=== PATIENT | male | born 1950 | race Caucasian/White ===

== ENCOUNTER → 2017-08-17 | Outpatient (CLI) | payer OTHER ==
[~2017-08-17] MED LIST: ASPI325T39 PO; NIFE30TA83 PO
[2017-08-17 13:38] LABS: BLOOD UREA NITROGEN 19 mg/dl (7-18); BUN/CREATININE RATIO 17.6 (10-20); CALCIUM 9.2 mg/dl (8.5-10.1); CARBON DIOXIDE 23 mmol/L (21-32); CHLORIDE 107 mmol/L (98-107); GLUCOSE 91 mg/dl (70-99); POTASSIUM 3.8 mmol/L (3.5-5.1); SODIUM 139 mmol/L (136-145)
[2017-08-17 13:52] LABS: CHOLESTEROL 171 mg/dl (0-200); CHOLESTEROL/HDL RATIO 3.5; HDL CHOLESTEROL 49 mg/dl; TRIGLYCERIDES 169 mg/dl (0-150); VERY LOW DENSITY LIPOPROT CALC 34 mg/dl
== END | disposition home or self-care (01) ==
LOC: C.LABSPEC 12:31
PROVIDERS: ATTEND Internal Medicine
DX: Z00.00 Encounter for general adult medical examination without abnormal findings (principal); I10 Essential (primary) hypertension; E78.5 Hyperlipidemia, unspecified

== ENCOUNTER → 2017-11-01 | Day surgery (SDC) | payer OTHER ==
[2017-09-28 15:35] LABS: BASO % 0.1 %; BASO ABS # 0.01 K/uL (0-0.2); COMPLETE YES; EOS % 1.5 %; HEMATOCRIT 48.6 % (42-52); IG% 0.4 %; LYMPH % 28.9 %; LYMPH ABS # 2.17 K/uL (1.2-3.4); MEAN CELL VOLUME 91.9 fL (80-100); MEAN CORPUSCULAR HEMOGLOBIN 32.5 pg (25-34); MEAN CORPUSCULAR HGB CONC 35.4 g/dl (32-36); NEUT % 61.1 %; PLATELET COUNT 230 K/uL (130-400); RED BLOOD COUNT 5.29 M/uL (4.7-6.1)
--- NOTE | 2017-09-28 15:40 | DIAGNOSTIC IMAGING REPORT ---
CHEST 2 VIEWS ROUTINE HISTORY: Z01.818 Pre-operative exam, WENT TO LAB SEND TO [facility] COMPARISON: Chest 02/06/2016. FINDINGS: The heart remains borderline enlarged. Tortuous thoracic aorta. The lungs are clear. No pleural effusions. No pneumothorax. IMPRESSION: No acute process. Electronically signed by: Steve Alberts M.D. 09/28/2017 3:38 PM Dictated Date/Time: 09/28/2017 3:37 PM
[2017-09-28 15:46] LABS: INR 0.9 (0.9-1.1); PARTIAL THROMBOPLASTIN RATIO 1.1; PROTHROMBIN TIME (PATIENT) 9.6 SECONDS (9.0-12.0)
[2017-09-28 16:08] LABS: POTASSIUM 4.3 mmol/L (3.5-5.1)
[2017-09-30 13:05] VITALS: Ht 177.8 cm; Wt 95.5 kg
[~2017-11-01] VITALS: Ht 177.8 cm; Wt 95.5 kg
[~2017-11-01] MED LIST changes: -ASPI325T39 PO; +ASPI81TA28 PO; +ATROPINE SULFATE 0.1 MG/ML 5ML SYR IV PRN; +DEXAMETHASONE SOD INJ 4 MG/ML VIAL ONE; +EpHEDrine SULFATE 50MG/5ML SYR ONE; +EpINEphrine INJ 1MG/ML AMP 1 MG/ML AMP ONE; +FENTANYL CITRATE INJ 50 MCG/1 ML 2 ML VIAL IV PRN; +FENTANYL CITRATE INJ 50 MCG/1 ML 2 ML VIAL ONE; +GLYCOPYRROLATE INJ 0.2 MG/ML VIAL ONE; +HYDROCODONE/APAP 2.5MG/108MG ELIX 5 ML UDP PO PRN; +LACTATED RINGER'S 1000ML 1,000 ML IV SCH; +LIDOCAINE 4% MPF SOAK 5 ML = 1 DOSE TOP ONE; +LIDOCAINE HCL 2% 2 ML VIAL (20MG/ML) ONE; +MIDAZOLAM HCL 1 MG/ML 2ML VIAL ONE; +MULT-506 PO; +OMEG10007 PO; +ONDANSETRON INJ 2 MG/ML 2 ML VIAL IV PRN; +ONDANSETRON INJ 2 MG/ML 2 ML VIAL ONE; +PRLSR20 PO; +PROPOFOL IV EMULSION 10 MG/ML 20 ML VIAL IV ONE
--- NOTE | 2017-11-01 13:40 | History and Physical: Surg Cnt ---
History & Physical Date Nov 01, 2017. Chief Complaint RIGHT VALLECULAR CYST, COUGH, THROAT "ANNOYANCE" History of Present Illness The patient is a 67 year old male with complaints of CHRONIC COUGH, THROAT CLEARING AND RIGHT SIDED GLOBUS SENSATION WITH LPR RX'D WITH MEDS BUT STILL SYMPTOMATIC. PATIENT NOTED TO HAVE RIGHT VALLECULAR CYST. Past Medical/Surgical History PMH: ABOVE, ARTHRITIS, CHOLELITHIASIS, BASAL CELL CA, HTN, LPR, MELENDEZ'S DISEASE PSH: S/P ANKLE SURGERY, S/P APPY, S/P AMADOR, S/P COLOSTOMY, S/P TONSILLECTOMY Additional History Hepatic Disease: No Endocrine Disorder: No Kidney Disease: No Hypertension: No Heart Disease: No Bleeding Tendencies: No Infectious Diseases: No Allergies Coded Allergies: Morphine (Verified Allergy, Unknown, RASH, 11/01/17) Oxycodone (Verified Allergy, Unknown, RASH, 11/01/17) Penicillins (Verified Allergy, Unknown, RASH, 11/01/17) Home Medications Scheduled Aspirin (Aspirin Ec), 81 MG PO DAILY Fish Oil ([place]-3), 1 CAP PO DAILY Multivitamin (Multivitamin), 1 TAB PO DAILY Nifedipine Ext Rel (Procardia Xl Ext Rel), 30 MG PO QPM Physical Examination Skin: warm/dry, no rash Eyes: normal inspection, EOMI, sclerae normal ENT: + pertinent finding (MODERATE SIZED RIGHT VALLECULAR CYST) Neck: supple, no adenopathy, trachea midline Respiratory/Chest: lungs clear, normal breath sounds, no respiratory distress Cardiovascular: regular rate, rhythm, no edema, no murmur Neurologic/Psych: no motor/sensory deficits, alert, normal reflexes, oriented x 3 Diagnosis RIGHT VALLECULAR CYST Plan of Treatment DML WITH REMOVAL OF RIGHT VALLECULAR CYST
--- NOTE | 2017-11-01 14:09 | [facility] Operative Report ---
Operative Report Operative Date Nov 01, 2017. Pre-Operative Diagnosis RIGHT VALLECULAR CYST Post-Operative Diagnosis TWO RIGHT VALLECULAR CYSTS Procedure(s) Performed DIRECT MICROLARYNGOSCOPY WITH BIOPSIES OF TWO RIGHT VALLECULAR CYSTS Surgeon KATHY Transport [employer]crew[employer] Surgeon(s) NONE Estimated Blood Loss 5ML Findings 1 LARGE AND 1 SMALLER RIGHT VALLECULAR CYSTS Specimens RIGHT VALLECULAR CYST 1 AND 2 FOR PERMANENT PATH I attest to the content of the Intraoperative Record and any orders documented therein. Any exceptions are noted below.
--- NOTE | 2017-11-01 14:12 | Discharge Instructions ---
Discharge Instructions Date of Service Nov 01, 2017. Admission Reason for Admission: Right Vallecular Cyst Discharge Discharge Diagnosis / Problem: 2 RIGHT VALLECULAR CYSTS Discharge Goals Goal(s): Therapeutic intervention Activity Recommendations Activity Limitations: as noted below NO DRIVING WHILE ON [place]CO . Current Hospital Diet Patient's current hospital diet: Regular Diet Discharge Diet Recommended Diet: Regular Diet Procedures Procedures Performed: DIRECT MICROLARYNGOSCOPY WITH BIOPSIES OF TWO RIGHT VALLECULAR CYSTS Pending Studies Studies pending at discharge: no Laboratory Results Lipid Panel Test 08/17/17 10:00 Range/Units Triglycerides Level 169 H 0-150 mg/dl Cholesterol Level 171 0-200 mg/dl HDL Cholesterol 49 mg/dl LDL Cholesterol Direct 112 mg/dl Cholesterol/HDL Ratio 3.5 LDL Cholesterol, Calculated mg/dl Medical Emergencies . Who to Call and When: Medical Emergencies: If at any time you feel your situation is an emergency, please call 911 immediately. . Non-Emergent Contact Non-Emergency issues call your: Surgeon . . "Provider Documentation" section prepared by Archie Arias. . VTE Core Measure Inpt VTE Proph given/why not?: SCD's
[2017-11-01 14:42] VITALS: TEMP 36.1
--- NOTE | 2017-11-01 14:56 | Anesthesia Progress Nt - [facility] ---
Anesthesia Post Op Note Date & Time Nov 01, 2017 at 14:56 Vital Signs Pain Intensity: 0 Vital Signs Past 12 Hours Date Time Temp Pulse Resp B/P (MAP) Pulse Ox O2 Delivery O2 Flow Rate FiO2 11/01/17 14:42 36.1 68 16 116/81 (93) 92 Room Air 11/01/17 14:37 72 14 94 11/01/17 14:37 72 14 11/01/17 14:37 36.6 70 16 133/80 98 Room Air 11/01/17 14:36 123/80 11/01/17 14:32 81 18 94 11/01/17 14:32 81 18 11/01/17 14:31 111/75 11/01/17 14:27 81 15 99 11/01/17 14:27 81 15 11/01/17 14:26 105/80 11/01/17 14:22 80 38 98 11/01/17 14:22 80 38 11/01/17 14:21 120/78 11/01/17 14:18 133/80 11/01/17 14:17 79 19 97 11/01/17 14:17 79 19 11/01/17 14:17 36 97 16 133/80 98 Room Air 11/01/17 11:01 36.5 50 16 147/91 (109) 97 Room Air Notes Mental Status: alert / awake / arousable, participated in evaluation Pt Amnestic to Procedure: Yes Nausea / Vomiting: adequately controlled Pain: adequately controlled Airway Patency, RR, SpO2: stable & adequate BP & HR: stable & adequate Hydration State: stable & adequate Anesthetic Complications: no major complications apparent
[2017-11-01 14:57] VITALS: BP 122/81; PULSE 63; O2SAT 95
--- NOTE | 2017-11-01 15:56 | OPERATIVE REPORT ---
DATE OF OPERATION: 11/01/2017 PREOPERATIVE DIAGNOSIS: Right vallecular cyst. POSTOPERATIVE DIAGNOSIS: Two right vallecular cysts. PROCEDURE: Direct microlaryngoscopy with biopsy of 2 right vallecular cysts. SURGEON: Dr. Archie Arias. ANESTHESIA: General endotracheal. ESTIMATED BLOOD LOSS: 5 mL. FINDINGS: One large and one smaller right vallecular cysts with purulence within each of the cysts. SPECIMENS: Right vallecular cyst #1 and right vallecular cyst #2 for permanent pathologic assessment. COMPLICATIONS: None. INDICATIONS FOR THE PROCEDURE: The patient is a very pleasant 67-year-old male with a history of laryngopharyngeal reflux with frequent throat clearing, coughing, and a right-sided Globus sensation, for which he was also found to have a right vallecular cyst in the office. Despite antireflux medications and lifestyle and dietary changes to control the reflux, he continued to have symptomatology, but was improved by approximately "30%." In an interval laryngoscopy examination several months apart, his right vallecular cyst had increased in size and because he had right-sided Globus sensation, it was recommended that he undergo direct microlaryngoscopy with biopsy in case his symptoms were primarily due to the vallecular cysts rather than the laryngopharyngeal reflux. He presents for the above-mentioned procedure on an outpatient elective basis. DESCRIPTION OF PROCEDURE: After informed consent had been obtained from the patient, the patient was wheeled to the operating room and placed on the operating room table in the supine position. Monitors were placed. After induction of general endotracheal anesthesia, the patient was prepped in the usual fashion for direct microlaryngoscopy. The patient was placed in the sniffing position and a tooth guard was placed over the maxillary dentition. The operating microscope was used to inspect the oral cavity, oropharynx, hypopharynx, and larynx. The intraoperative findings were of 2 vallecular cysts on the right hand side with the larger one being more inferior and adjacent to the epiglottis and the smaller one being more superior in adjacent to the tongue base. Photodocumentation with a 0 degree bare telescope was then undertaken. Using the bare telescope, cup forceps were used to biopsy and subsequently marsupialize both the inferior and superior right vallecular cyst. Purulent material was noted to emanate from both vallecular cysts. Specimens were sent off for permanent pathological assessment. Topical 1:1000 epinephrine pledgets were placed over the biopsy sites and for added hemostatic effect. After several minutes, the pledgets were removed and hemostasis was confirmed. The oral cavity and oropharynx were suctioned. The operating microscope was carefully withdrawn as was the maxillary tooth guard. This marked the end of the case. The patient tolerated the procedure well. There were no apparent complications. All the instrumentation was removed from the patient. The patient was extubated and transferred to recovery room in stable condition. I attest to the content of the Intraoperative Record and any orders documented therein. Any exception s are noted below.
== END | disposition home or self-care (01) ==
LOC: X.SURG 10:49
DX: J38.7 Other diseases of larynx (principal); I10 Essential (primary) hypertension; Z93.3 Colostomy status; M19.90 Unspecified osteoarthritis, unspecified site; Z88.5 Allergy status to narcotic agent; Z88.0 Allergy status to penicillin; Z90.89 Acquired absence of other organs; Z90.49 Acquired absence of other specified parts of digestive tract; Z79.82 Long term (current) use of aspirin

== ENCOUNTER → 2017-12-13 | Outpatient (CLI) | payer OTHER ==
[~2017-12-13] MED LIST changes: -ATROPINE SULFATE 0.1 MG/ML 5ML SYR IV PRN; -DEXAMETHASONE SOD INJ 4 MG/ML VIAL ONE; -EpHEDrine SULFATE 50MG/5ML SYR ONE; -EpINEphrine INJ 1MG/ML AMP 1 MG/ML AMP ONE; -FENTANYL CITRATE INJ 50 MCG/1 ML 2 ML VIAL IV PRN; -FENTANYL CITRATE INJ 50 MCG/1 ML 2 ML VIAL ONE; -GLYCOPYRROLATE INJ 0.2 MG/ML VIAL ONE; -HYDROCODONE/APAP 2.5MG/108MG ELIX 5 ML UDP PO PRN; -LACTATED RINGER'S 1000ML 1,000 ML IV SCH; -LIDOCAINE 4% MPF SOAK 5 ML = 1 DOSE TOP ONE; -LIDOCAINE HCL 2% 2 ML VIAL (20MG/ML) ONE; -MIDAZOLAM HCL 1 MG/ML 2ML VIAL ONE; -ONDANSETRON INJ 2 MG/ML 2 ML VIAL IV PRN; -ONDANSETRON INJ 2 MG/ML 2 ML VIAL ONE; -PRLSR20 PO; -PROPOFOL IV EMULSION 10 MG/ML 20 ML VIAL IV ONE
--- NOTE | 2017-12-13 09:24 | DIAGNOSTIC IMAGING REPORT ---
(BARIUM SWALLOW) ESOPHAGUS CLINICAL HISTORY: 67 years-old Male presenting with K21.9 Laryngopharyngeal reflux PATIENT WITH HEARTBURN, DYSPHAGIA,. TECHNIQUE: A standard air contrast barium esophagram is performed. Multiple spot images of the esophagus are acquired both upright and prone. COMPARISON: None. FINDINGS: The patient was able to ingest barium without difficulty. Normal mucosal pattern. No evidence of intrinsic or extrinsic mass lesion. No aspiration observed. Few tertiary contractions evident. Trace hiatal hernia may be present. The gastroesophageal junction distended normally. No gastroesophageal reflux could be elicited despite provocative maneuvers. Fluoroscopy dosage (mGy): Not available. Fluoroscopy time: 1.9 minutes. Number of fluoroscopic spot images: 20. IMPRESSION: 1. Tertiary contractions in the esophagus could suggest dysmotility, likely presbyesophagus. 2. Trace hiatal hernia. Electronically signed by: Tru Gilbert M.D. 12/13/2017 9:23 AM Dictated Date/Time: 12/13/2017 9:21 AM
== END | disposition home or self-care (01) ==
LOC: C.RAD 08:51
DX: K21.9 Gastro-esophageal reflux disease without esophagitis (principal)

== ENCOUNTER → 2018-02-15 | Outpatient (CLI) | payer OTHER ==
[2018-02-21 17:07] LABS: FECAL OCCULT BLOOD #1 NEGATIVE (NEGATIVE); FECAL OCCULT BLOOD #2 NEGATIVE (NEGATIVE); FECAL OCCULT BLOOD #3 NEGATIVE (NEGATIVE)
== END | disposition home or self-care (01) ==
LOC: C.LABSPEC 16:36
PROVIDERS: ATTEND Internal Medicine
DX: Z12.11 Encounter for screening for malignant neoplasm of colon (principal)

== ENCOUNTER → 2018-03-08 | Outpatient (CLI) | payer OTHER ==
--- NOTE | 2018-03-11 07:58 | PULMONARY FUNCTION TEST ---
CLINICAL DATA: [age]old male with a height of 70 inches and a weight of [address] Bunn for a persistent cough. Spirometry pre- and post-bronchodilator, lung volumes, and DLCO were performed. FINDINGS: Pre-bronchodilator spirometry demonstrates very mild small airway obstruction. FVC was 100% of predicted. FEV1 was 96% of predicted. [id number] was 75% of predicted. There was improvement after inhaled bronchodilator. FVC improved 2% to 102% of predicted. FEV1 improved 7% to 103% of predicted. [id number] improved 44% to 108% of predicted. Lung volumes showed a slight reduction in expiratory reserve volume due to the patient's weight. Diffusion capacity was normal. IMPRESSION: Very mild obstructive small airways disease with improvement after inhaled bronchodilator consistent with asthma/bronchitis. A trial of inhaled steroids or inhaled steroids/bronchodilator may be of benefit. Clinical correlation is needed. MTDD
== END | disposition home or self-care (01) ==
LOC: C.RC 12:57
PROVIDERS: ATTEND Internal Medicine
DX: R05 Cough (principal)

== ENCOUNTER 2023-11-02 23:10 | Inpatient (IN) ==
[2023-11-02] MEDS ORDERED: ONDANSETRON INJ 2 MG/ML 2 ML VIAL IV STA (23:48)
[2023-11-03 00:17] LABS: Basophils # (auto) 0.04 K/uL (0.00-0.20); Basophils % (auto) 0.3 %; Eosinophils # (auto) 0.07 K/uL (0.00-0.50); Eosinophils % (auto) 0.5 %; Hematocrit (blood only) 50.6 % (42.0-52.0); Immature Granulocytes # (auto) 0.07 K/uL (0.01-0.20); Immature Granulocytes % (auto) 0.5 %; Lymphocytes # (auto) 2.66 K/uL (1.20-3.40); Lymphocytes % (auto) 17.9 %; Mean Corpuscular Hemoglobin 31.8 pg (25.0-34.0); Mean Corpuscular Hgb Conc 35.6 g/dL (32.0-36.0); Mean Corpuscular Volume 89.4 fL (80.0-100.0); Mean Platelet Volume 10.9 fL (9.4-12.4); Monocytes # (auto) 0.57 K/uL (0.11-0.59); Monocytes % (auto) 3.8 %; Neutrophils # (auto) 11.49 K/uL (1.40-6.50); Platelet Count 299 K/uL (130-400); RDW Coefficient of Variation 12.3 % (11.5-14.5); RDW Standard Deviation 40.7 fL (36.4-46.3); Red Blood Count 5.66 M/uL (4.70-6.10)
[2023-11-03] MEDS ORDERED: ONDANSETRON INJ 2 MG/ML 2 ML VIAL IV STA (00:22)
[2023-11-03] MEDS ORDERED: ACETAMINOPHEN 1,000 MG/100 ML VIAL IV STA (00:22)
[2023-11-03] MEDS ORDERED: SODIUM CHLORIDE 0.9% 1,000 ML IV ONE (00:22)
[2023-11-03 00:24] LABS: Albumin Globulin Ratio 1.2 (0.9-2); Albumin Level 4.5 gm/dl (3.4-5.0); BUN Creatinine Ratio 12.3 (10-20); Bilirubin,Total 0.7 mg/dl (0.2-1.0); Calcium 10.4 mg/dl (8.6-10.3); Creatinine Clr Calc Pharmacy 61.7 ml/min; Est GFR (African American) 67.3 ml/min; Globulin 3.8 gm/dl (2.5-4.0); Potassium 4.1 mmol/L (3.5-5.1); Total Protein 8.3 gm/dl (6.0-8.3)
[2023-11-03 00:30] LABS: Troponin I High Sensitivity 10.4 pg/ml (0-20)
[2023-11-03] MEDS ORDERED: OPTIRAY 320 500ml IV ONE (01:02)
--- NOTE | 2023-11-03 01:48 | Emergency Department Note ---
Impression & Plan SBO (small bowel obstruction), Abdominal pain, Nausea ED Provider Note NAME: JAMES REYNAGA AGE: 73 SEX: M ARRIVES VIA: Walk-In INFORMANT: Patient ED PROVIDER(S): Abdulaziz Hendrickson MD CHIEF COMPLAINT: Abdominal pain. PLAN: Disposition: Admit MEDICAL DECISION MAKING: The patient is a pleasant 73-year-old gentleman with a past medical history of hypertension, GERD, history of diverticulitis with remote history of colostomy status post reversal who presents to the emergency room via walk-in, accompanied by his for worsening abdominal pain that initially began around 4 PM today and then flared with increasing pain around 7 PM with associated nausea. He denies any vomiting. He reports he did move his bowels this morning after eating breakfast which included eggs and he reports he typically has some loose stool in the morning when he does this. He otherwise denies any fevers, cough, congestion, urinary symptoms. On evaluation the patient is uncomfortable but no acute distress, afebrile stable vital signs. Appears clinically dry. Abdomen is mildly distended with mild tenderness within the central abdomen without guarding or rebound. EKG without overt acute ischemia. WBC 14.9 K with neutrophil predominance though no left shift, nonspecific. H/H and platelets within normal limits. Chemistry without metabolic acidosis. Electrolytes and LFTs without significant abnormality. High-sensitivity troponin 10.4, within limits. Lipase is mildly above normal and nonspecific. Patient did report his pain had improved to a 5/10 after IV fluid hydration and IV APAP as well as Zofran. However, subsequently, CT of the abdomen pelvis demonstrates small bowel obstruction with suspected transition point around the mid jejunum. NG tube was ordered. Case was discussed with Dr. Napoleon Hopkins, [facility] [place] with Dr. Barry [facility] hospitalist who will evaluate the patient for admission. Case discussed with Alonso Terrazas, general surgery PA-C with general surgery, Dr. Roberto. Triage Nursing notes reviewed and agree them. Prior/external medical records reviewed Vital Signs: reviewed Differential diagnosis: Appendicitis, testicular torsion, infections, diverticulitis, UTI, obstruction, mesenteric ischemia, aortic pathology, inflammatory bowel disease, renal colic, PUD, pancreatitis, biliary pathology, hernia, volvulus, constipation, as well as other pathologies. ER treatment provided: See below. Diagnostics interpreted by me: ECG: Normal sinus rhythm, 65 bpm, no ectopy, no overt ST elevation or depression, QTc 407, QRS 74. Cardiac Monitoring: An order for continuous cardiac monitoring was placed and demonstrated Normal sinus rhythm, 65 bpm, no ectopy. Laboratory studies: See below Imaging studies: See below Consultation(s): Case was discussed with Dr. Napoleon Hopkins, [facility] admitting resident with SIMRAN Dalal hospitalist who will evaluate the patient for admission. Case discussed with Alonso Terrazas, general surgery MILY with general surgery, Dr. Roberto. HPI:The patient is a pleasant 73-year-old gentleman with a past medical history of hypertension, GERD, history of diverticulitis with remote history of colostomy status post reversal who presents to the emergency room via walk-in, accompanied by his for worsening abdominal pain that initially began around 4 PM today and then flared with increasing pain around 7 PM with associated nausea. He denies any vomiting. He reports he did move his bowels this morning after eating breakfast which included eggs and he reports he typically has some loose stool in the morning when he does this. He otherwise denies any fevers, cough, congestion, urinary symptoms. ROS: See above HPI for pertinent positives & negatives. A total of 10 systems reviewed and were otherwise negative. VITALS:See Below PHYSICAL EXAMINATION: GENERAL: Awake, alert, uncomfortable-appearing, in no distress HENT: Normocephalic, atraumatic. Oropharynx with dry mucous membranes and otherwise unremarkable. EYES: Normal conjunctiva. Sclera non-icteric. NECK: Supple. No nuchal rigidity. FROM. No JVD. RESPIRATORY: Clear to auscultation. CARDIAC: Regular rate, normal rhythm. Extremities warm and well perfused. Pulses equal. ABDOMEN: Mildly distended with mild tenderness within the mid abdomen without guarding or rebound. RECTAL: Deferred. MUSCULOSKELETAL: Chest examination reveals no tenderness. The back is symmetrical on inspection without obvious abnormality. There is no CVA tenderness to palpation. No joint edema. LOWER EXTREMITIES: Calves are equal size bilaterally and non-tender. No edema. No discoloration. NEURO: Normal sensorium. No sensory or motor deficits noted. SKIN: No rash or jaundice noted. Abdulaziz Hendrickson MD Past Med/Surg History Medical History Chronic SI joint pain Spinal stenosis of lumbar region Lumbar facet joint syndrome Infected sebaceous cyst Osteoarthritis Diverticular disease Hiatal hernia GERD (gastroesophageal reflux disease) Asthma MILD-NO INHALERS Cardiac murmur HX Hypertension Surgical History Hx of excision of epidermal inclusion cyst (07/30/21) Excision of a sebaceous cyst in the posterior neck 07/30/[address] 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 Family History Mother Family history of diabetes mellitus Hypertension Grandfather (Maternal) Family hx of colon cancer Brother Cancer Colorectal cancer Father Hypertension Stroke Prostate cancer Other Clotting disorder Social History Smoking Status: Current some day smoker Tobacco Type: Cigars Cigarettes Per Day: occasionally; Second Hand Exposure: No; Do You Dip or Chew Tobacco: No; Hx Alcohol Use: Yes Alcohol type: hard liquor Alcohol Intake Frequency: 4 or More x per/Week Hx Substance Use: No Preferred Language: Cuban Communication Ability: Effective Communication Tools: Lip Movement/Reading Visual Impairment: No Limitations Hearing Ability: Normal Mold Finisher Required: No Beliefs That Will Affect Care: None marital status: Current Living Situation: Spouse current occupational status: retired Other Information That Helps Us Care for You: No Feels Safe at Home: Yes Safety Concerns: Feels Safe At This Time Childhood Exposure to Second-Hand Smoke: Yes Diet: regular Dental Care, Regularly: Yes Physical Activity Frequency: 3-4 Times per Week Seatbelt Use: always Sunscreen Use: Yes Assistive Devices: Glasses Allergies Allergies Allergy/AdvReac Type Severity Reaction Status Date / Time morphine Allergy Unknown RASH Verified 09/13/23 13:17 oxycodone Allergy Unknown RASH Verified 09/13/23 13:17 Penicillins Allergy Unknown RASH Verified 09/13/23 13:17 monosodium glutamate AdvReac Unknown Diarrhea Verified 09/13/23 13:17 Home Meds Home Medications Medication Instructions Recorded Confirmed aspirin 81 mg tablet,delayed 81 mg PO QAM 11/22/18 11/03/23 release (Aspir-) multivitamin 1 tab PO QAM 11/22/18 11/02/23 calcium carbonate 600 mg calcium 600 mg PO DAILY 06/11/21 11/02/23 (1,500 mg) tablet cholecalciferol (vitamin D3) 125 125 mcg PO DAILY 06/11/21 11/02/23 mcg (5,000 unit) capsule glucosamine HCl 1,500 mg tablet 1,500 mg PO DAILY 07/08/22 11/02/23 [id number] 5 mg-zeaxanth 1 cap PO DAILY 12/08/22 11/03/23 1 mg-bilberry 7.5 mg-herbal capsule ([employer] Formula) Previous Rx's Medication Instructions Recorded famotidine 40 mg tablet 40 mg PO DAILY #90 tabs 06/30/23 atorvastatin 20 mg tablet 20 mg PO DAILY #90 tabs 07/29/23 nifedipine 30 mg tablet,extended 30 mg PO HS #90 tabs 07/29/23 release celecoxib 100 mg capsule (Celebrex) 100 mg PO BID #60 caps 09/13/23 Results & Data (ED) Vital Signs Vital Signs - 24 hr 11/02/23 23:14 11/02/23 23:33 11/02/23 23:34 Temperature 36.3 C L Temperature Source Temporal Artery Scan Pulse Rate 89 70 71 Pulse Rate from SpO2 Sensor Respiratory Rate 16 29 H Respiratory Effort / Characteristics Non-Labored Spontaneous Respiratory Depth Normal Blood Pressure 139/90 Blood Pressure Mean 106 Pulse Oximetry 100 Oxygen Delivery Method Room Air Sepsis Recent Fever Within 48 Hours No Sepsis New/Unexplained Change in Mental Status No Sepsis Action Taken by Nursing No Action Required 11/02/23 23:40 11/02/23 23:48 11/02/23 23:50 Temperature Temperature Source Pulse Rate 98 H 64 Pulse Rate from SpO2 Sensor 97 H 64 Respiratory Rate 23 20 Respiratory Effort / Characteristics Non-Labored Respiratory Depth Normal Blood Pressure Blood Pressure Mean Pulse Oximetry 100 98 Oxygen Delivery Method Sepsis Recent Fever Within 48 Hours Sepsis New/Unexplained Change in Mental Status Sepsis Action Taken by Nursing 11/03/23 00:00 11/03/23 00:10 11/03/23 00:10 Temperature Temperature Source Pulse Rate 78 58 L Pulse Rate from SpO2 Sensor 73 58 L Respiratory Rate 25 H 23 Respiratory Effort / Characteristics Respiratory Depth Blood Pressure 126/76 Blood Pressure Mean 80 Pulse Oximetry 100 99 Oxygen Delivery Method Sepsis Recent Fever Within 48 Hours Sepsis New/Unexplained Change in Mental Status Sepsis Action Taken by Nursing 11/03/23 00:20 11/03/23 00:30 11/03/23 00:40 Temperature Temperature Source Pulse Rate 48 L 47 L 47 L Pulse Rate from SpO2 Sensor 48 L 48 L 47 L Respiratory Rate 16 19 13 Respiratory Effort / Characteristics Respiratory Depth Blood Pressure Blood Pressure Mean Pulse Oximetry 96 95 96 Oxygen Delivery Method Sepsis Recent Fever Within 48 Hours Sepsis New/Unexplained Change in Mental Status Sepsis Action Taken by Nursing 11/03/23 00:50 11/03/23 01:05 11/03/23 01:10 Temperature Temperature Source Pulse Rate 50 L 58 L Pulse Rate from SpO2 Sensor 50 L 64 58 L Respiratory Rate 17 17 Respiratory Effort / Characteristics Respiratory Depth Blood Pressure Blood Pressure Mean Pulse Oximetry 97 95 96 Oxygen Delivery Method Sepsis Recent Fever Within 48 Hours Sepsis New/Unexplained Change in Mental Status Sepsis Action Taken by Nursing 11/03/23 01:20 Temperature Temperature Source Pulse Rate 61 Pulse Rate from SpO2 Sensor 60 Respiratory Rate 14 Respiratory Effort / Characteristics Respiratory Depth Blood Pressure Blood Pressure Mean Pulse Oximetry 91 Oxygen Delivery Method Sepsis Recent Fever Within 48 Hours Sepsis New/Unexplained Change in Mental Status Sepsis Action Taken by Nursing Laboratory Data Attestation: I reviewed the patient's lab results. 11/02/23 23:40 11/02/23 23:40 Lab Results 11/02/23 11/03/23 Range/Units 23:40 01:35 WBC 14.90 H (4.8-10.8) K/ul RBC 5.66 (4.70-6.10) M/uL Hgb 18.0 (14.0-18.0) g/dl Hct 50.6 (42.0-52.0) % MCV 89.4 (80.0-100.0) fL MCH 31.8 (25.0-34.0) pg MCHC 35.6 (32.0-36.0) g/dL RDW Std Deviation 40.7 (36.4-46.3) fL RDW Coeff of Chris 12.3 (11.5-14.5) % Plt Count 299 (130-400) K/uL MPV 10.9 (9.4-12.4) fL Immature Gran % (Auto) 0.5 % Neut % (Auto) 77.0 % Lymph % (Auto) 17.9 % [place] % (Auto) 3.8 % Eos % (Auto) 0.5 % Baso % (Auto) 0.3 % Neut # (Auto) 11.49 H (1.40-6.50) K/uL Lymph # (Auto) 2.66 (1.20-3.40) K/uL [place] # (Auto) 0.57 (0.11-0.59) K/uL Eos # (Auto) 0.07 (0.00-0.50) K/uL Baso # (Auto) 0.04 (0.00-0.20) K/uL Immature Gran # (Auto) 0.07 (0.01-0.20) K/uL Sodium 141 (136-145) mmol/L Potassium 4.1 (3.5-5.1) mmol/L Chloride 103 (98-107) mmol/L Carbon Dioxide 24 (21-32) mmol/L Anion Gap 14 H (3-11) BUN 15 (6-23) mg/dl Creatinine 1.22 (0.6-1.4) mg/dl Est Cr Clr Drug Dosing 61.7 ml/min Est GFR ( Amer) 67.3 ml/min Est GFR (Non-Af Amer) 58.0 ml/min BUN/Creatinine Ratio 12.3 (10-20) Glucose 126 H (70-99(Fasting)) mg/dl Calcium 10.4 H (8.6-10.3) mg/dl Total Bilirubin 0.7 (0.2-1.0) mg/dl AST 27 (13-39) U/L ALT 24 (7-52) U/L Alkaline Phosphatase 73 (34-104) U/L Troponin I High Sens 10.4 (0-20) pg/ml Total Protein 8.3 (6.0-8.3) gm/dl Albumin 4.5 (3.4-5.0) gm/dl Globulin 3.8 (2.5-4.0) gm/dl Albumin/Globulin Ratio 1.2 (0.9-2) Lipase 111 H (11-82) U/L Urine Color Yellow Urine Appearance Clear (Clear) Urine pH 8.0 H (4.5-7.5) Ur Specific [place] > 1.045 H (1.000-1.030) Urine Protein Negative (Negative) Urine Glucose (UA) Negative (Negative) Urine Ketones 1+ H (Negative) Urine Blood Negative (Negative) Urine Nitrite Negative (Negative) Urine Bilirubin Negative (Negative) Urine Urobilinogen Negative (Negative) Ur Leukocyte Esterase Negative (Negative) Administered Medications Hydromorphone HCl (Hydromorphone Inj 0.5 Mg/0.5 Ml Syr) 0.5 mg IV Q6H PRN PRN Reason: Severe Pain (Scale 7, 8, 9,10) Stop: 11/17/23 03:47 Last Admin: 11/03/23 04:08 Dose: 0.5 mg Documented By: JASON Lactated Ringer's (Lr) 1,000 mls @ 125 mls/hr IV .Q8H BEBA Stop: 12/03/23 03:47 Last Admin: 11/03/23 04:05 Dose: 125 mls/hr Documented By: JASON Discontinued Medications Benzocaine/Butamben/Tetracaine HCl (Benzocaine/Tetracain/Butam 50 Appln/5 Gm Can) 1 appln EXT NOW STA Stop: 11/03/23 02:15 Last Admin: 11/03/23 04:14 Dose: Not Given Documented By: JASON Benzocaine/Butamben/Tetracaine HCl (Benzocaine/Tetracain/Butam 50 Appln/5 Gm Can) Confirm Administered Dose 50 appln EXT .STK-MED ONE Stop: 11/03/23 02:22 Last Admin: 11/03/23 02:45 Dose: 50 appln Documented By: MAITE Sodium Chloride (Nss) 1,000 mls @ 999 mls/hr IV .Q1H1M ONE Stop: 11/03/23 01:22 Last Infusion: 11/03/23 01:48 Dose: Infused Documented By: Admin: 11/03/23 00:33 Dose: 999 mls/hr Documented By: MAITE Acetaminophen (Ofirmev) 1,000 mg in 100 mls @ 400 mls/hr IV NOW STA Stop: 11/03/23 00:36 Last Infusion: 11/03/23 01:00 Dose: Infused Documented By: Admin: 11/03/23 00:32 Dose: 400 mls/hr Documented By: MAITE Ioversol (Optiray 320 500ml) 100 ml IV ONCE ONE Stop: 11/03/23 01:03 Last Admin: 11/03/23 01:03 Dose: 89 ml Documented By: ROHITH Lidocaine HCl (Lidocaine 2% Jelly 5 Ml Tube) 5 ml EXT NOW ONE Stop: 11/03/23 02:15 Last Admin: 11/03/23 02:45 Dose: 5 ml Documented By: MAITE Ondansetron HCl (Ondansetron Inj 2 Mg/Ml 2 Ml Vial) 4 mg IV NOW STA Stop: 11/02/23 23:49 Last Admin: 11/03/23 00:10 Dose: 4 mg Documented By: MAITE Ondansetron HCl (Ondansetron Inj 2 Mg/Ml 2 Ml Vial) 4 mg IV NOW STA Stop: 11/03/23 00:23 Last Admin: 11/03/23 00:33 Dose: Not Given Documented By: MAITE Imaging Data Radiologist's Impression: Abdomen/Pelvis CT 11/03/23 00:22 Exam(s): CT ABDOMEN + PELVIS With Contrast IV Amt: 89 ml optiray 320 EXAM: CT Abdomen and Pelvis With Intravenous Contrast CLINICAL HISTORY: Reason for exam: abd pain, h/o diverticulitis. TECHNIQUE: Axial computed tomography images of the abdomen and pelvis with intravenous contrast. Automated exposure control was utilized for the study. A dose lowering technique was utilized adhering to the principles of ALARA. CONTRAST: Patient received 89 ml optiray 320 of IV contrast COMPARISON: None. FINDINGS: Lung bases: Minimal left lower lobe atelectasis, remainder of the lung bases are clear. Heart: Unremarkable. No cardiomegaly. No significant pericardial effusion. Normal cardiac size with mild coronary artery calcifications. ABDOMEN: Liver: Unremarkable. No mass. Gallbladder and bile ducts: Status post cholecystectomy. No ductal dilation. Pancreas: Unremarkable. No mass. No ductal dilation. Spleen: Unremarkable. No splenomegaly. Adrenals: Unremarkable. No mass. Kidneys and ureters: Mild bilateral perinephric stranding, otherwise normal bilateral kidneys. No hydronephrosis. Stomach and bowel: Diffuse distention of multiple small bowel loops up to a maximum diameter of 2.5 cm compatible with small bowel obstruction. Transition is indeterminate and likely within the anterior abdomen, mid jejunum, axial images 57, 58, series 2. Mild scattered diverticulosis with no signs of diverticulitis. There are postoperative changes throughout the sigmoid with scattered surgical clips throughout the mid abdomen. PELVIS: Appendix: Distinct appendix not visualized. Appendix not visualized. Bladder: Unremarkable. No mass. Reproductive: Mild nodular enlargement of the prostate gland. ABDOMEN and PELVIS: Intraperitoneal space: Unremarkable. No free air. No significant fluid collection. Bones/joints: Multilevel degenerative disease of the spine. No acute fracture. No dislocation. Soft tissues: Unremarkable. Vasculature: Mild atherosclerotic disease of aorta and bilateral iliac arteries. Lymph nodes: Unremarkable. No enlarged lymph nodes. IMPRESSION: 1. Small bowel obstruction with suboptimally seen on a transition and likely within the mid jejunum as described above. 2. Diverticulosis with no signs of diverticulitis. 3. Status post cholecystectomy, otherwise unremarkable abdominal viscera. Electronically signed by: Janna Fox MD 11/03/23 02:06 AM Discharge Plan Visit Data Chief Complaint: Abdominal Pain Stated Complaint: SHARP ABDOMINAL PAINS, LITTLE NAUSEA WITH IT ED Provider: Abdulaziz Hendrickson Discharge Problem: SBO (small bowel obstruction), Abdominal pain, Nausea Patient Disposition: Admitted As Inpatient Discharge Instructions Interventions: ED Discharge Assessment Last Done: 11/03/23 03:28 Discharge Problem: Abdominal pain Qualifiers: Abdominal location: generalized Qualified Code(s): R10.84 - Generalized abdominal pain
--- NOTE | 2023-11-03 02:08 | CT Scan Report ---
Exam(s): CT ABDOMEN + PELVIS With Contrast IV Amt: 89 ml optiray 320 EXAM: CT Abdomen and Pelvis With Intravenous Contrast CLINICAL HISTORY: Reason for exam: abd pain, h/o diverticulitis. TECHNIQUE: Axial computed tomography images of the abdomen and pelvis with intravenous contrast. Automated exposure control was utilized for the study. A dose lowering technique was utilized adhering to the principles of ALARA. CONTRAST: Patient received 89 ml optiray 320 of IV contrast COMPARISON: None. FINDINGS: Lung bases: Minimal left lower lobe atelectasis, remainder of the lung bases are clear. Heart: Unremarkable. No cardiomegaly. No significant pericardial effusion. Normal cardiac size with mild coronary artery calcifications. ABDOMEN: Liver: Unremarkable. No mass. Gallbladder and bile ducts: Status post cholecystectomy. No ductal dilation. Pancreas: Unremarkable. No mass. No ductal dilation. Spleen: Unremarkable. No splenomegaly. Adrenals: Unremarkable. No mass. Kidneys and ureters: Mild bilateral perinephric stranding, otherwise normal bilateral kidneys. No hydronephrosis. Stomach and bowel: Diffuse distention of multiple small bowel loops up to a maximum diameter of 2.5 cm compatible with small bowel obstruction. Transition is indeterminate and likely within the anterior abdomen, mid jejunum, axial images 57, 58, series 2. Mild scattered diverticulosis with no signs of diverticulitis. There are postoperative changes throughout the sigmoid with scattered surgical clips throughout the mid abdomen. PELVIS: Appendix: Distinct appendix not visualized. Appendix not visualized. Bladder: Unremarkable. No mass. Reproductive: Mild nodular enlargement of the prostate gland. ABDOMEN and PELVIS: Intraperitoneal space: Unremarkable. No free air. No significant fluid collection. Bones/joints: Multilevel degenerative disease of the spine. No acute fracture. No dislocation. Soft tissues: Unremarkable. Vasculature: Mild atherosclerotic disease of aorta and bilateral iliac arteries. Lymph nodes: Unremarkable. No enlarged lymph nodes. IMPRESSION: 1. Small bowel obstruction with suboptimally seen on a transition and likely within the mid jejunum as described above. 2. Diverticulosis with no signs of diverticulitis. 3. Status post cholecystectomy, otherwise unremarkable abdominal viscera. Electronically signed by: Janna Fox MD 11/03/23 02:06 AM
[2023-11-03] MEDS ORDERED: BENZOCAINE/TETRACAIN/BUTAM 50 APPLN/5 GM CAN EXT STA (02:14)
[2023-11-03] MEDS ORDERED: LIDOCAINE 2% JELLY 5 ML TUBE EXT ONE (02:14)
[2023-11-03] MEDS ORDERED: BENZOCAINE/TETRACAIN/BUTAM 50 APPLN/5 GM CAN EXT ONE (02:21)
[2023-11-03 02:31] LABS: Appearance Urine Clear (Clear); Bilirubin Urine Negative (Negative); Blood Urine Negative (Negative); Color Urine Yellow; Glucose Urine UA Negative (Negative); Ketones Urine 1+ (Negative); Leukocyte Esterase Urine Negative (Negative); Nitrite Urine Negative (Negative); Protein Urine Negative (Negative); Specific Gravity Urine > 1.045 (1.000-1.030); Urobilinogen Urine Negative (Negative)
--- NOTE | 2023-11-03 02:41 | Surgery Consultation ---
Date of Consultation November 03, 2023 Assessment & Plan (1) Small bowel obstruction: I discussed with the treating emergency room physician and the patient is being admitted on the hospitalist service. From surgical perspective we recommend proceeding as follows: IV fluids to be provided for hydration N.p.o. status has been implemented Due to the patient's abdominal distention and findings on CT scan along with the fact that he had some emesis in the emergency department, the treating emergency room physician has ordered an NG tube. I agree with this modality. Analgesics to be provided Antiemetics to be provided Serial labs to be followed The patient does have an abnormal urinalysis and a urine culture has been sent. Appropriate measures to be taken based on these culture result I suspect the patient's small bowel obstruction is likely due to adhesions from his multiple abdominal surgeries. I did discuss with the patient the conservative treatment plan outlined above. I did discuss with the patient that his NG tube can be removed and diet can be advanced beginning with clear liquids once he has improvement of abdominal exam and return of bowel function. I also did discuss with the patient that sometimes patients do require surgical intervention if they do not have resolution of their small bowel obstruction after reasonable amount of observation time has been allotted At the present time the patient is normotensive without tachycardia or fever. He also does not have acute kidney injury. He does not have any signs of peritonitis and is in no distress and therefore I feel a trial of conservative management of small bowel obstruction is indicated. The patient expresses understanding and had all of his questions answered. I also discussed with his who was present at the bedside Additional recommendations be forthcoming based on his clinical course as it unfolds Patient seen. Doing okay so far with no urgent indication for surgical intervention. Keep NG tube and IV fluids. Will repeat KUB tomorrow. History of Present Illness Reason for Consultation: Small bowel obstruction History of Present Illness This is a 73-year-old male who presented to the emergency department secondary to abdominal pain. Patient said that he noted a diffuse abdominal pain that began approximately 4:00 PM on 11/02/2023. The patient initially felt that the pain would get better but it persisted and got slightly worse around 7:00 PM so he presented to the emergency department. The patient did not have any nausea or vomiting when he was at home but he did have an episode of emesis upon presentation to the emergency department. He denies any fevers, shakes, or chills. He does note that he had a normal bowel movement this morning prior to his symptoms beginning but notes that since his symptoms began he has not passed any flatus. The patient has had numerous abdominal surgeries. In 1993 he reports he has had perforated diverticulitis requiring a Lizzy procedure. He does note that his colostomy has since been reversed. He is also undergone an appendectomy and a cholecystectomy. He notes that he has never had a known or documented small bowel obstruction in the past but he does report an episode of abdominal pain approximately 10 years ago at which time he presented to the emergency department but he did not require admission. Finally, the patient does report that he gets regular colonoscopieshis most recent colonoscopy was in January 2022. The patient did have polypectomies performed and he was also noted to have diverticulosis of the sigmoid colon. No other concerning pathology was noted on this study. The patient does report that when he is feeling well he leads an active lifestyle. He says he golfs and utilizes an exercise bicycle several times per week and he does not get chest pain or shortness of breath when these activities are performed. Since arrival to the hospital the patient has had labs and imaging which I independently reviewed. He underwent a CT scan of the abdomen pelvis that showed patient had a small bowel obstruction with distention of multiple loops of small bowel and a transition point felt to be likely in the mid jejunum. There is no significant free fluid in the abdomen and no intraperitoneal free air. Labs include a CBC her white blood cell count was elevated at 14.9. His hemoglobin and hematocrit along with the platelet count were normal. Chemistry profile showed sodium and potassium along with the BUN and creatinine were normal. There is no elevation of the patient's LFTs. His lipase had a slight elevation at 111. A urinalysis has been ordered and is pending. At the time of my interview the patient was resting comfortably bed and he is in no distress Allergies Allergy/AdvReac Type Severity Reaction Status Date / Time morphine Allergy Unknown RASH Verified 09/13/23 13:17 oxycodone Allergy Unknown RASH Verified 09/13/23 13:17 Penicillins Allergy Unknown RASH Verified 09/13/23 13:17 monosodium glutamate AdvReac Unknown Diarrhea Verified 09/13/23 13:17 Home Medications Medication Instructions Recorded Confirmed Type aspirin 81 mg tablet,delayed 81 mg PO QAM 11/22/18 11/03/23 History release (Aspir-) multivitamin 1 tab PO QAM 11/22/18 11/02/23 History calcium carbonate 600 mg calcium 600 mg PO DAILY 06/11/21 11/02/23 History (1,500 mg) tablet cholecalciferol (vitamin D3) 125 125 mcg PO DAILY 06/11/21 11/02/23 History mcg (5,000 unit) capsule glucosamine HCl 1,500 mg tablet 1,500 mg PO DAILY 07/08/22 11/02/23 History kgxaovhx-uwi-hlojsi 5 mg-zeaxanth 1 cap PO DAILY 12/08/22 11/03/23 History 1 mg-bilberry 7.5 mg-herbal capsule ([employer] Formula) famotidine 40 mg tablet 40 mg PO DAILY #90 tabs 06/30/23 11/02/23 Rx atorvastatin 20 mg tablet 20 mg PO DAILY #90 tabs 07/29/23 11/02/23 Rx nifedipine 30 mg tablet,extended 30 mg PO HS #90 tabs 07/29/23 11/03/23 Rx release celecoxib 100 mg capsule (Celebrex) 100 mg PO BID #60 caps 09/13/23 11/02/23 Rx Patient History Medical History Chronic SI joint pain Spinal stenosis of lumbar region Lumbar facet joint syndrome Infected sebaceous cyst Osteoarthritis Diverticular disease Hiatal hernia GERD (gastroesophageal reflux disease) Asthma MILD-NO INHALERS Cardiac murmur HX Hypertension Surgical History Hx of excision of epidermal inclusion cyst (07/30/21) Excision of a sebaceous cyst in the posterior neck 07/30/[address] 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 Family History Mother Family history of diabetes mellitus Hypertension Grandfather (Maternal) Family hx of colon cancer Brother Cancer Colorectal cancer Father Hypertension Stroke Prostate cancer Other Clotting disorder Social History Smoking Status: Current some day smoker Tobacco Type: Cigars Cigarettes Per Day: occasionally; Second Hand Exposure: No; Do You Dip or Chew Tobacco: No; Hx Alcohol Use: Yes Alcohol type: hard liquor Alcohol Intake Frequency: 4 or More x per/Week Hx Substance Use: No Preferred Language: Greenlandic Communication Ability: Effective Communication Tools: Lip Movement/Reading Visual Impairment: No Limitations Hearing Ability: Normal Automatic Mold Sander Required: No Beliefs That Will Affect Care: None marital status: Current Living Situation: Spouse current occupational status: retired Other Information That Helps Us Care for You: No Feels Safe at Home: Yes Safety Concerns: Feels Safe At This Time Childhood Exposure to Second-Hand Smoke: Yes Diet: regular Dental Care, Regularly: Yes Physical Activity Frequency: 3-4 Times per Week Seatbelt Use: always Sunscreen Use: Yes Assistive Devices: Glasses Review of Systems Constitutional: no fever and no chills Eyes: + corrective lenses Ear, Nose, Mouth, Throat: no hearing loss Respiratory: no cough and no dyspnea Cardiovascular: no chest pain Gastrointestinal: as per Subjective / HPI Genitourinary: no dysuria Musculoskeletal: no back pain Integumentary: no rash Neurologic: no localized weakness Physical Exam Constitutional: WD/WN, vitals as above Eyes: Wears glasses ENMT: Ears: no hearing impairment Mouth: no oropharynx abnormality Neck: trachea midline Respiratory: normal respiratory effort; no respiratory distress and no labored breathing Cardiovascular: Rate/Rhythm: regular rate and regular rhythm Gastrointestinal (Abdomen): Abdomen is mildly distended but soft and nonrigid. It is not tympanic to percussion. The patient did have some generalized pain with palpation greatest to the right of the umbilicus. There is no rebound tenderness or guarding or other signs of peritonitis Musculoskeletal: No calf tenderness Skin: no rashes Neurologic: moves all extremities Psychiatric: A+Ox3, euthymic affect Results & Data Vital Signs (Past 12 Hours) Vital Signs Temp Pulse Resp BP Pulse Ox O2 Del Method 11/03/23 01:20 61 14 91 11/03/23 01:10 58 L 17 96 11/03/23 01:05 95 11/03/23 00:50 50 L 17 97 11/03/23 00:40 47 L 13 96 11/03/23 00:30 47 L 19 95 11/03/23 00:20 48 L 16 96 11/03/23 00:10 126/76 11/03/23 00:10 58 L 23 99 11/03/23 00:00 78 25 H 100 11/02/23 23:50 64 20 98 11/02/23 23:40 98 H 23 100 11/02/23 23:34 71 11/02/23 23:33 70 29 H 11/02/23 23:14 36.3 C L 89 16 139/90 100 Room Air PG Care Time/CCT Total # of Minutes Spent Total Time Spent with Patient: Total time spent is greater than 50% in coordination of care (as documented) at patient's floor/unit and/or counseling patient: Coding Level of Care Code 27625 INT INP/OBS CARE 3/75MIN Diagnoses Small bowel obstruction K56.609
--- NOTE | 2023-11-03 03:00 | History & Physical Report ---
Date of Service November 03, 2023 Assessment & Plan (1) Small bowel obstruction: Plan: Patient is a 73-year-old male with past medical history of hypertension, previous cholecystectomy, history of perforated diverticulitis status post reanastomosed colostomy, previous appendectomy, hyperlipidemia, and GERD who presents to the hospital for evaluation of abdominal pain. Patient found to have small bowel obstruction and is currently n.p.o. with NG tube in place will be admitted for IV fluids and pain management. -Admit to [facility], no telemetry indication -Likely adhesive given multiple abdominal surgeries including appendectomy, cholecystectomy, and reanastomosis of colostomy from perforated diverticulitis -Consult general surgery, appreciate recommendations -NG tube in place -LR at 125 cc/h -IV Tylenol for mild pain, Dilaudid for moderate to severe pain -Antiemetics as needed -N.p.o. (2) Hypertension: Plan: - Hold nifedipine while n.p.o., resume when able (3) Hyperlipidemia: Plan: - Hold statin while n.p.o., resume when able (4) GERD (gastroesophageal reflux disease): Plan: - Hold famotidine, may utilize IV formulation if patient experiences acid reflux Plan Disposition: Admit to [facility] with general surgery consultation for SBO DVT prophylaxis: Lovenox Diet: N.p.o. with LR at 125 cc/h CODE STATUS: Full code as discussed with patient History of Present Illness Chief Complaint: Abdominal pain Primary Care Provider: Ayush Arteaga DO Patient is a 73-year-old male with past medical history of hypertension, previous cholecystectomy, history of perforated diverticulitis status post reanastomosed colostomy, previous appendectomy, hyperlipidemia, and GERD who presents to the hospital for evaluation of abdominal pain. It seems patient had a normal day up until approximately 4 PM when he had a small bout of crampy abdominal pain which somewhat improved but then later in the evening into 7 or 8 PM, patient's abdominal pain got severely worse which made him come to the emergency department for further evaluation. Prior to coming to the emergency room he did not have any vomiting but he did vomit in his room once. He has been quite nauseous as well. No hematemesis. Last bowel movement was this morning and it was normal. Patient gets a colonoscopy every 5 years with his last 1 being 2 years ago over they did find some polyps. No history of colon cancer. Otherwise no other complaints at this time. ED course: Patient evaluated by provider. Labs were significant for an elevated white blood cell count of 14. Anion gap of 14. Calcium of 10.4. Lipase of 111. Urinalysis positive for 1+ ketones. Abdomen and pelvis CT positive for small bowel obstruction. Patient was given antiemetics, Tylenol, a bolus of normal saline all of which seem to improve his symptoms. An NG tube was ordered and placed by nursing. The hospitalist service was consulted for admission and the general surgery group was also consulted. Allergies Allergy/AdvReac Type Severity Reaction Status Date / Time morphine Allergy Unknown RASH Verified 09/13/23 13:17 oxycodone Allergy Unknown RASH Verified 09/13/23 13:17 Penicillins Allergy Unknown RASH Verified 09/13/23 13:17 monosodium glutamate AdvReac Unknown Diarrhea Verified 09/13/23 13:17 Home Medications Medication Instructions Recorded Confirmed Type aspirin 81 mg tablet,delayed 81 mg PO QAM 11/22/18 11/03/23 History release (Aspir-) multivitamin 1 tab PO QAM 11/22/18 11/02/23 History calcium carbonate 600 mg calcium 600 mg PO DAILY 06/11/21 11/02/23 History (1,500 mg) tablet cholecalciferol (vitamin D3) 125 125 mcg PO DAILY 06/11/21 11/02/23 History mcg (5,000 unit) capsule glucosamine HCl 1,500 mg tablet 1,500 mg PO DAILY 07/08/22 11/02/23 History esdjozey-que-ybsksn 5 mg-zeaxanth 1 cap PO DAILY 12/08/22 11/03/23 History 1 mg-bilberry 7.5 mg-herbal capsule ([employer] [facility] Formula) famotidine 40 mg tablet 40 mg PO DAILY #90 tabs 06/30/23 11/02/23 Rx atorvastatin 20 mg tablet 20 mg PO DAILY #90 tabs 07/29/23 11/02/23 Rx nifedipine 30 mg tablet,extended 30 mg PO HS #90 tabs 07/29/23 11/03/23 Rx release celecoxib 100 mg capsule (Celebrex) 100 mg PO BID #60 caps 09/13/23 11/02/23 Rx Past Med/Surg History Medical History Chronic SI joint pain Spinal stenosis of lumbar region Lumbar facet joint syndrome Infected sebaceous cyst Osteoarthritis Diverticular disease Hiatal hernia GERD (gastroesophageal reflux disease) Asthma MILD-NO INHALERS Cardiac murmur HX Hypertension Surgical History Hx of excision of epidermal inclusion cyst (07/30/21) Excision of a sebaceous cyst in the posterior neck 07/30/[address] 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 Family History Mother Family history of diabetes mellitus Hypertension Grandfather (Maternal) Family hx of colon cancer Brother Cancer Colorectal cancer Father Hypertension Stroke Prostate cancer Other Clotting disorder Social History Smoking Status: Current some day smoker Tobacco Type: Cigars Cigarettes Per Day: occasionally; Second Hand Exposure: No; Do You Dip or Chew Tobacco: No; Hx Alcohol Use: Yes Alcohol type: hard liquor Alcohol Intake Frequency: 4 or More x per/Week Hx Substance Use: No Preferred Language: Guamanian Communication Ability: Effective Communication Tools: Lip Movement/Reading Visual Impairment: No Limitations Hearing Ability: Normal 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 Required: No Beliefs That Will Affect Care: None marital status: Current Living Situation: Spouse current occupational status: retired Other Information That Helps Us Care for You: No Feels Safe at Home: Yes Safety Concerns: Feels Safe At This Time Childhood Exposure to Second-Hand Smoke: Yes Diet: regular Dental Care, Regularly: Yes Physical Activity Frequency: 3-4 Times per Week Seatbelt Use: always Sunscreen Use: Yes Assistive Devices: None Review of Systems Review of Systems: All systems reviewed & are unremarkable except as noted in HPI & below Physical Exam Constitutional: well developed and well nourished; no acute distress Eyes: + anicteric sclerae Neck: trachea midline, no thyromegaly Respiratory: normal respiratory effort, lungs clear to auscultation Cardiovascular: RRR, no murmur, no edema Gastrointestinal (Abdomen): Inspection/Auscultation: + abdomen distended and + high-pitched sounds Percussion/Palpation: + abdomen tender and abdomen soft Musculoskeletal: Head/Neck/Chest: normocephalic and head atraumatic Skin: no rashes, warm and dry Neurologic: moves all extremities Psychiatric: A+Ox3, euthymic affect Results & Data Results & Data Vital Signs (Past 12 Hours) Vital Signs Temp Pulse Resp BP Pulse Ox O2 Del Method 11/03/23 01:20 61 14 91 11/03/23 01:10 58 L 17 96 11/03/23 01:05 95 11/03/23 00:50 50 L 17 97 11/03/23 00:40 47 L 13 96 11/03/23 00:30 47 L 19 95 11/03/23 00:20 48 L 16 96 11/03/23 00:10 126/76 11/03/23 00:10 58 L 23 99 11/03/23 00:00 78 25 H 100 11/02/23 23:50 64 20 98 11/02/23 23:40 98 H 23 100 11/02/23 23:34 71 11/02/23 23:33 70 29 H 11/02/23 23:14 36.3 C L 89 16 139/90 100 Room Air Code Status & VTE Plan VTE Prophylaxis Plan VTE Prophylaxis will be ordered: Yes Supervising Physician Co-Signing Physician Notes Attending addendum: I have physically seen this patient, have supervised the medical residents activities, and agree with the H&P unless as otherwise noted. Assessment and Plan: Small bowel obstruction- As noted on CT of abdomen pelvis History of multiple previous abdominal surgeries as noted NPO NG tube to low intermittent suction LR at 125 MLS per hour Acetaminophen 1 g IV every 8 hours as needed for mild pain or fever Dilaudid 0.25 mg IV every 3 hours as needed for moderate to severe pain Zofran 4 mg IV every 6 hours as needed Pantoprazole 40 mg IV daily General surgery consulted and has already seen the patient in the ED Hypertension- Hold nifedipine Hydralazine 10 mg IV every 4 hours as needed for systolic blood pressure greater than 160 Remaining orders and notations as noted
[2023-11-03] MEDS ORDERED: ONDANSETRON INJ 2 MG/ML 2 ML VIAL IV PRN (03:48)
[2023-11-03] MEDS ORDERED: HYDROmorphone INJ 0.5 MG/0.5 ML SYR IV PRN (03:48)
--- OUTSIDE RECORDS SUMMARY | 2023-11-03 03:59 | External Medical Summary | Continuity of Care Document ---
Author Name Unknown Organization [facility] [address] [facility] 2 Address [address] [id number] Care Team Providers Care Press Catcher Name Role Phone Ayush Arteaga Primary Care Physician [phone] [id number] Date(s): 06/03/23 - 06/03/23 [facility] [address] [facility] [address] [phone] Encounter Diagnosis AK (actinic keratosis)(Discharge Diagnosis) - 06/03/23 History of basal cell cancer(Discharge Diagnosis) - 06/03/23 Discharge Disposition: Home or Self Care Attending Physician: MD Murillo David L Referring Physician: MD Murillo David L Allergies, Adverse Reactions, Alerts Substance Reaction Severity Status morphine rash Active penicillins unsure Active MSG (Monosodium Glutamate) A ctive oxyCODONE Rash Active Assessment and Plan Extracted from: Title:Clinical Document Author:MD Murillo David L Date:06/03/23 OUTPATIENT NOTE Name: JAMES COSTA Patient Number:1 [id number] : 1950 Date of Service: 06/03/2023 _ Mr Costa comes in for recheck. He notes some lesions on the scalp. He does golf. Does keep a hat on. He does have a distant past history of basal cell carcinoma. Physical examination: Is a well-developed well-nourished white male type II skin. Alert and oriented x3. Examination of scalp reveals scattered erythematous hyperkeratotic macules on the crown of the scalp few on the forehead and temples. A several fall verruca hyperkeratotic papules on the trunk. Impression: #1 actinic keratosis on the scalp. #2 no evidence for new or recurrent basal cell carcinoma. #3 seborrheic keratosis. Plan: 5-fluorouracil cream 5% twice daily for 2 weeks of the scalp. Side effects were discussed. He will do this in the fall. Sun protection was stressed. Return for recheck in 1 year. Medications famotidine 20 mg oral tablet Start: 06/03/23 14:11:00 EDT, 90 each, TAKE 1 TABLET BY MOUTH DAILY Start Date: 06/03/23 Status: Ordered fluorouracil 5% topical cream Start: 06/03/23 14:35:00 EDT, 1 appl, topical, bid, Disp# 40 g, Refills: 1, apply to scalp for 2 weeks Start Date: 06/03/23 Status: Ordered Lipitor 20 mg oral tablet Start: 05/30/21 14:08:00 EDT, 1 tab, PO, Daily Start Date: 05/30/21 Status: Ordered multivitamin Start: 11/11/18 8:07:00 EST, 1 tab, PO, Daily Start Date: 11/11/18 Status: Ordered Procardia Start: 09/11/13 10:52:00, 30 mg =, PO, Daily Start Date: 09/11/13 Status: Suspended Tylenol 500 mg oral tablet Start: 10/11/13 8:28:00, takes 1500 mg every 4 hours as needed Start Date: 10/11/13 Status: Ordered Mental Status 06/03/23 Barriers to Learning one year None evide nt Mandatory Health Literacy Documentation Yes Health Literacy Communication Barriers N ever Primary Language Latvian Problem List Condition Confirmation Course Effective Dates Status Health St atus Informant Ankle pain, right Confirmed Active Cough Confirmed Active Chronic GERD Confirmed Active History of basal cell carcinoma (BCC) Confirmed Active History of SCC (squamous cell carcinoma) of skin Confirmed Active Tobacco user Confirmed Active Diagnosis Diagnosis Type Effective Dates Health Status Cl inical Service Informant History of basal cell cancer Discharge Diagnosis 06/03/23 AK (actinic keratosis) Discharge Diagnosis 06/03/23 Procedures Procedure Date Related Diagnosis Body Site Status Colonoscopy 1 01/29/22 Completed Shave biopsy and cauterization of skin 05/06/20 Completed Arnold 2 11/24/18 Completed Surgery 2016 Completed Colonoscopy 4 10/28/16 Completed Cholecystectomy 2013 Completed Ankle fusion 5 10/11/13 Completed Colonoscopy 2009 Completed reversal of colostomy 1995 Com pleted Colostomy 1994 Completed Appendectomy 1961 Completed Tonsillectomy 1954 Completed 1Two 3mm polyps in the distal transverse colon, removed with a cold biopsy forceps. Resected and retrieved. One 3 mm polyp in the mid descending colon, removed with a cold biopsy forceps. Resected and retrieved. Diverticulosis in the sigmoid colon. The distal rectum and anal verge are normal on retroflexion view. Repeat colonoscopy in 5 years. 248 hour study off of medication. No significant reflux. One Sx recorded during 49 reflux episodes indicating poor correlation to Sx. 3cysts removed from throat 4Dr Leonardo colonoscopy polyps AC and TC removed path tubular adenoma, sigmoid diverticulosis--repeat5 years recommended 5right Social History Social History Type Response Tobacco Former smoker, Cigar ettes 1 Smoking Status Never smoked cigaret marjan Sex Male 1cigars a few in the summer Outpatient Note * MD Lidia, James Rivera: PERFORM Event Display: .Outpt Note Authored Date: [id number] OUTPATIENT NOTE Name: JAMES COSTA Patient Number:1 [id number] : 1950 Date of Service: 06/03/2023 _ Mr Costa comes in for recheck. He notes some lesions on the scalp. He does golf. Does keep a haton. He does have a distant past history of basal cell carcinoma. Physical examination: Is a well-developed well-nourished white male type II skin. Alert and oriented x3. Examination of scalp reveals scattered erythematous hyperkeratotic macules on the crown of thescalp few on the forehead and temples. A several fall verruca hyperkeratotic papules on the trunk. Impression: #1 actinic keratosis on the scalp. #2 no evidence for new or recurrent basal cell carcinoma. #3 seborrheic keratosis. Plan: 5-fluorouracil cream 5% twice daily for 2 weeks of the scalp. Side effects were discussed. Hewill do this in the fall. Sun protection was stressed. Return for recheck in 1 year. Electronic Signature on File Electronically Reviewed/Signed by: James Murillo MD Author Signature Dt/Tm:06/03/2023 02:44 PM Department of Dermatology D[facility] Patient Care team information Care Team Personnel Name: DO Arteaga Philip A Position: Referring Member Role: Primary Care Provider Address: Address: [address] [place] [id number] [place] Care Team Related Persons Name: JUHI JASPER Godwin Address: home [address] [place] [id number]
[2023-11-03] MEDS: LACTATED RINGER'S 1,000 ML IV SCH ×3 (04:05→19:54)
[2023-11-03] MEDS: HYDROmorphone INJ 0.5 MG/0.5 ML SYR IV PRN ×3 (04:08→18:18)
[2023-11-03] MEDS: ACETAMINOPHEN 1,000 MG/100 ML VIAL IV PRN ×2 (06:15→15:06)
[2023-11-03 06:57] LABS: Hematocrit (blood only) 49.3 % (42.0-52.0); Hemoglobin 16.3 g/dl (14.0-18.0); Mean Corpuscular Hemoglobin 30.8 pg (25.0-34.0); Mean Corpuscular Hgb Conc 33.1 g/dL (32.0-36.0); Mean Platelet Volume 11.4 fL (9.4-12.4); Platelet Count 218 K/uL (130-400); RDW Coefficient of Variation 12.6 % (11.5-14.5); RDW Standard Deviation 42.9 fL (36.4-46.3); White Blood Count 12.28 K/ul (4.8-10.8)
--- NOTE | 2023-11-03 07:04 | XRay Report ---
KUB CLINICAL HISTORY: NG tube confirmation COMPARISON STUDY: CT of the abdomen and pelvis performed earlier today. FINDINGS: Tip of nasogastric tube projects over the distal stomach. Cholecystectomy clips are inciden tally noted. Left basilar opacity favors atelectasis. IMPRESSION: Tip of nasogastric tube projects over the distal stomach. ACT 112: Negative or not required by law. Electronically signed by: Brain Rodriguez M.D. 11/03/2023 7:03 AM
[2023-11-03 07:52] LABS: Anion Gap 6 (3-11); BUN Creatinine Ratio 14.1 (10-20); Blood Urea Nitrogen 14 mg/dl (6-23); Calcium 9.5 mg/dl (8.6-10.3); Carbon Dioxide 27 mmol/L (21-32); Chloride 107 mmol/L (98-107); Est GFR (African American) 86.6 ml/min; Est GFR (Non-African American) 74.7 ml/min; Glucose 114 mg/dl (70-99(Fasting)); Sodium 140 mmol/L (136-145)
[2023-11-03] MEDS: ENOXAPARIN INJ 40 MG/0.4 ML SYR SQ SCH (08:36)
[2023-11-03] MEDS ORDERED: COUGH DROP (SUGAR FREE) LOZ 24 LOZ/1 BOX BUCCAL PRN (09:51)
--- NOTE | 2023-11-03 23:44 | Billing Data ---
Date of Service November 03, 2023 Coding Level of Care Code 78633 INT INP/OBS CARE
[2023-11-04] MEDS: HYDROmorphone INJ 0.5 MG/0.5 ML SYR IV PRN (00:04)
[2023-11-04] MEDS: LACTATED RINGER'S 1,000 ML IV SCH ×3 (03:53→21:12)
[2023-11-04 07:34] LABS: BUN Creatinine Ratio 16.3 (10-20); Calcium 8.9 mg/dl (8.6-10.3); Creatinine Clr Calc Pharmacy 81.8 ml/min; Est GFR (African American) 94.6 ml/min; Est GFR (Non-African American) 81.6 ml/min; Potassium 3.7 mmol/L (3.5-5.1)
[2023-11-04] MEDS ORDERED: hydrALAZINE HCL 20 MG/ML VIAL IV SCH (08:30)
--- NOTE | 2023-11-04 09:30 | Surgery Progress Note ---
Date of Service November 04, 2023 Assessment & Plan (1) SBO (small bowel obstruction): Plan: clinically improving....awaiting KUB...if improved will pull NGT and begin clears no current indication for surgical intervention Admission and Anticipated Discharge Date Admission Date: November 03, 2023 Subjective pt seen. feeling much better. several large/loose bm's last night. Physical Exam Physical Exam: alert. nad NGT with scant /thin output...output looks much better than yesterday abd: soft. much less distended. non-tender Results & Data Vital Signs (Past 12 Hours) Vital Signs Temp Pulse Resp BP Pulse Ox O2 Del Method 11/04/23 08:45 54 L 184/94 H 11/04/23 07:20 36.6 C 57 L 17 163/94 H 95 Room Air 11/03/23 22:16 63 170/90 H 11/03/23 22:05 36.8 C 61 18 170/95 H 95 Room Air PG Care Time/CCT Total # of Minutes Spent Total Time Spent with Patient: Total time spent is greater than 50% in coordination of care (as documented) at patient's floor/unit and/or counseling patient: Coding Level of Care Code 51782 SUB INP/OBS CARE 2/35MIN Diagnoses SBO (small bowel obstruction) K56.609
--- NOTE | 2023-11-04 09:51 | XRay Report ---
KUB CLINICAL HISTORY: Small bowel obstruction. COMPARISON STUDY: CT of the abdomen and pelvis and KUB November 03, 2023. FINDINGS: Tip of nasogastric tube projects over the distal stomach. There are cholecystectomy clips a s well as multiple abdominal surgical clips. Multiple loops of mildly dilated small bowel measure up to 4.1 cm in caliber. The findings suggest a persistent small bowel obstruction. Although sensitivity is diminished on supine exam, there is no evidence for free air. No radiographic evidence for pneuma tosis. IMPRESSION: Findings suggestive of a persistent small bowel obstruction. ACT 112: Negative or not required by law. Electronically signed by: Brain Rodriguez M.D. 11/04/2023 9:50 AM
[2023-11-04] MEDS: ENOXAPARIN INJ 40 MG/0.4 ML SYR SQ SCH (10:00)
[2023-11-04] MEDS: ACETAMINOPHEN 1,000 MG/100 ML VIAL IV PRN (10:40)
[2023-11-04] MEDS ORDERED: MoRPHine SULFATE 2 MG/ML CARP IV STA (10:40)
[2023-11-04] MEDS ORDERED: KETOROLAC TROMETHAMINE 15 MG/ML VIAL IV PRN (10:41)
--- NOTE | 2023-11-04 13:38 | Hospitalist Progress Note ---
Date of Service November 04, 2023 Assessment & Plan (1) Small bowel obstruction: Plan: likely on the basis of adhesions. previous cholecystectomy history of perforated diverticulitis s/p resection/colostomy formation, then reversal of colostomy ultimately previous appendectomy appreciate gen surg assistance cont NPO status cont NG tube to ILWS cont pain meds cont symptomatic meds for sore throat IV fluids KUB x-ray noted today (2) Hypertension: Plan: Hold nifedipine while NPO add hydralazine IV q8h for BP control (3) Hyperlipidemia: Plan: Hold statin while NPO (4) GERD (gastroesophageal reflux disease): Plan: h/o GERD, hiatal hernia, and recent NSAID use minimal coffee-ground material in his NG tubing & cannister typically on pepcid at home start IV protonix 40mg BID (5) Gastritis: Plan: probable due to chronic NSAID use see #4 above (6) Hiatal hernia: Plan: risk factor for severe GERD/gastritis/etc IV ppi twice daily (7) DVT prophylaxis: Plan: lovenox if coffee-ground material worsens, if H/H drop, etc --> stop lovenox, switch to SCDs only recheck labs am Plan updated at bedside Admission and Anticipated Discharge Date Admission Date: November 03, 2023 Subjective main complaint is that of sore throat from his NG tube this am had some mild coffee-ground material in his NG tube and the suction cannister he reports taking pepcid chronically for reflux disease also reports having been on motrin chronically for arthritis, then switched to celebrex about 1 month ago abdomen feels less bloated today did have large liquid stool this am passing flatus no vomiting no dyspnea at bedside Review of Systems Review of Systems: cv - no chest pain pulm - no cough or RODRIGUEZ GI - no abd pain Physical Exam Physical Exam: gen - NAD, pleasant HENT - NG tube in place; tubing with minimal amount of coffee-ground material; mouth - MMM; throat - mildly erythematous neck - no JVD heart - RRR, s1 s2 lungs - CTA b/l abd - distended (maybe slightly better than yesterday); BS+; NT; no HSM ext - no edema, pulses 2+ b/l Results & Data Results & Data Vital Signs (Past 12 Hours) Vital Signs Temp Pulse Resp BP Pulse Ox O2 Del Method 11/04/23 10:22 54 L 172/92 H 11/04/23 08:45 54 L 184/94 H 11/04/23 07:20 36.6 C 57 L 17 163/94 H 95 Room Air Laboratory Results Laboratory Results 11/04/23 06:32 WBC RBC Hgb Hct MCV MCH MCHC RDW Std Deviation RDW Coeff of Chris Plt Count MPV Sodium 141 Potassium 3.7 Chloride 106 Carbon Dioxide 29 Anion Gap 6 BUN 15 Creatinine 0.92 Est Cr Clr Drug Dosing 81.8 Est GFR ( Amer) 94.6 Est GFR (Non-Af Amer) 81.6 BUN/Creatinine Ratio 16.3 Glucose 101 H Calcium 8.9 Magnesium Diagnostic Findings KUB X-Ray 11/04/23 07:00 KUB CLINICAL HISTORY: Small bowel obstruction. COMPARISON STUDY: CT of the abdomen and pelvis and KUB November 03, 2023. FINDINGS: Tip of nasogastric tube projects over the distal stomach. There are cholecystectomy clips as well as multiple abdominal surgical clips. Multiple loops of mildly dilated small bowel measure up to 4.1 cm in caliber. The findings suggest a persistent small bowel obstruction. Although sensitivity is diminished on supine exam, there is no evidence for free air. No radiographic evidence for pneumatosis. IMPRESSION: Findings suggestive of a persistent small bowel obstruction. ACT 112: Negative or not required by law. Electronically signed by: Brain Rodriguez M.D. 11/04/2023 9:50 AM PG Care Time/CCT Total # of Minutes Spent Total Time Spent with Patient: Total time spent is greater than 50% in coordination of care (as documented) at patient's floor/unit and/or counseling patient: Coding Level of Care Code 33864 SUB INP/OBS CARE 2/35MIN Diagnoses Small bowel obstruction K56.609 Hypertension I10 Hyperlipidemia E78.5 GERD (gastroesophageal reflux disease) K21.9 Gastritis K29.70 Hiatal hernia K44.9 DVT prophylaxis Z29.9
[2023-11-04] MEDS: PANTOprazole 40 MG in SYRINGE 0 ML IV SCH (14:26)
[2023-11-04] MEDS: hydrALAZINE HCL 20 MG/ML VIAL IV SCH (16:46)
[2023-11-05] MEDS: PANTOprazole 40 MG in SYRINGE 0 ML IV SCH ×3 (00:07→20:25)
[2023-11-05] MEDS: hydrALAZINE HCL 20 MG/ML VIAL IV SCH ×2 (00:07→08:50)
[2023-11-05] MEDS: ACETAMINOPHEN 1,000 MG/100 ML VIAL IV PRN (00:14)
[2023-11-05] MEDS: LACTATED RINGER'S 1,000 ML IV SCH (05:19)
[2023-11-05 07:59] LABS: Hematocrit (blood only) 44.9 % (42.0-52.0); Hemoglobin 15.6 g/dl (14.0-18.0); Mean Corpuscular Hemoglobin 31.3 pg (25.0-34.0); Mean Corpuscular Hgb Conc 34.7 g/dL (32.0-36.0); Mean Corpuscular Volume 90.2 fL (80.0-100.0); Platelet Count 219 K/uL (130-400); RDW Coefficient of Variation 12.3 % (11.5-14.5); RDW Standard Deviation 40.5 fL (36.4-46.3); Red Blood Count 4.98 M/uL (4.70-6.10); White Blood Count 14.51 K/ul (4.8-10.8)
[2023-11-05 08:16] LABS: Anion Gap 8 (3-11); BUN Creatinine Ratio 11.1 (10-20); Blood Urea Nitrogen 10 mg/dl (6-23); Calcium 9.2 mg/dl (8.6-10.3); Carbon Dioxide 28 mmol/L (21-32); Chloride 102 mmol/L (98-107); Creatinine Clr Calc Pharmacy 83.6 ml/min; Est GFR (African American) 97.2 ml/min; Est GFR (Non-African American) 83.8 ml/min; Glucose 95 mg/dl (70-99(Fasting)); Sodium 138 mmol/L (136-145)
--- NOTE | 2023-11-05 08:32 | Surgery Progress Note ---
Date of Service November 05, 2023 Assessment & Plan (1) SBO (small bowel obstruction): Plan: clinically improving however still with high ngt output and kub yesterday still showing SBO SBFT ordered for today no urgent indication for surgery [facility] covering for weekend. Admission and Anticipated Discharge Date Admission Date: November 03, 2023 Subjective pt seen. feeling fine except discomfort from ngt. +flatus but no more bowel fx Physical Exam Constitutional: WD/WN, vitals as above no acute distress and not ill appearing Eyes: PERRL, conjunctivae normal, anicteric sclerae EOM intact bilaterally ENMT: external ear and nose normal, oropharynx normal Ears: no hearing impairment Neck: trachea midline, no thyromegaly Respiratory: normal respiratory effort; no respiratory distress and does not use accessory muscles Cardiovascular: Rate/Rhythm: regular rate and regular rhythm Gastrointestinal (Abdomen): soft. nt. nd. much improved from admission Skin: no rashes, warm and dry Psychiatric: Orientation: alert, oriented x 3 and cooperative Results & Data Vital Signs (Past 12 Hours) Vital Signs Temp Pulse Resp BP Pulse Ox O2 Del Method 11/05/23 07:37 36.8 C 58 L 16 156/83 H 94 Room Air 11/04/23 22:00 Room Air 11/04/23 20:38 36.7 C 69 16 144/84 H 94 Room Air PG Care Time/CCT Total # of Minutes Spent Total Time Spent with Patient: Total time spent is greater than 50% in coordination of care (as documented) at patient's floor/unit and/or counseling patient: Coding Level of Care Code 85505 SUB INP/OBS CARE 2/35MIN Diagnoses SBO (small bowel obstruction) K56.609
[2023-11-05] MEDS: ENOXAPARIN INJ 40 MG/0.4 ML SYR SQ SCH (08:49)
[2023-11-05] MEDS: CHLORASEPTIC (PHENOL) 1.4% SOLN 180 ML BTL MT PRN ×2 (10:39→11:53)
[2023-11-05] MEDS: POTASSIUM CHLORIDE / WTR 10 MEQ/100 ML PLCT IV SCH ×2 (10:41→11:50)
--- NOTE | 2023-11-05 10:51 | Fluoroscopy Report ---
FL small bowel follow through CLINICAL HISTORY: Small bowel obstruction. COMPARISON STUDY: CT of the abdomen and pelvis November 03, 2023 and KUB November 04, 2023. TECHNIQUE: Initially, a angledozer operator KUB was obtained. Small bowel follow-through was then performed utilizi ng dilute Optiray 320. Overhead images were obtained. FINDINGS: There are cholecystectomy clips. Tip of nasogastric tube is within the distal stomach. Surg ical clips within the lower abdomen and pelvis are noted. Small bowel dilatation has improved since p rior CT and KUB. There is mild residual dilatation of several mid small bowel loops. No well-defined transition point was identified. Contrast reached the cecum at 40 minutes. There is no evidence for a high-grade small bowel obstruction. IMPRESSION: Findings suggestive of an improving small bowel obstruction. Mild residual small bowel di latation, improved since prior exam. No well-defined transition point. Contrast reached the cecum at 40 minutes. ACT 112: Negative or not required by law. Electronically signed by: Brain Rodriguez M.D. 11/05/2023 10:49 AM
[2023-11-05] MEDS: POTASSIUM CHLORIDE 20 MEQ in LACTATED RINGER'S 1,000 ML IV SCH ×2 (12:59→23:38)
--- NOTE | 2023-11-05 16:06 | Hospitalist Progress Note ---
Date of Service November 05, 2023 Assessment & Plan (1) Small bowel obstruction: Plan: likely on the basis of adhesions. previous cholecystectomy history of perforated diverticulitis s/p resection/colostomy formation, then reversal of colostomy ultimately previous appendectomy appreciate gen surg assistance small bowel follow-thru study results noted --> SBO is resolving based on that study clinically resolving --> multiple stools, flatus, distension improving NG tube has been stopped by gen surg clear liquid diet started lower fluid rate to 75cc/hr repeat labs am (2) Hypertension: Plan: resume nifedipine stop hydralazine IV (3) Hyperlipidemia: Plan: can resume statin at d/c (4) GERD (gastroesophageal reflux disease): Plan: h/o GERD, hiatal hernia, and recent NSAID use minimal coffee-ground material in his NG tubing & cannister typically on pepcid at home cont IV protonix 40mg BID (5) Gastritis: Plan: probable due to chronic NSAID use see #4 above at d/c would recommend several weeks of PPI and f/u with GI for ?EGD (6) Hiatal hernia: Plan: risk factor for severe GERD/gastritis/etc IV ppi twice daily (7) DVT prophylaxis: Plan: H/H stable today - can cautiously continue lovenox Plan updated at bedside Hypokalemia - replace; repeat K level am Admission and Anticipated Discharge Date Admission Date: November 03, 2023 Subjective pt overall feeling better NG tube was removed after his small bowel follow-thru study which showed that his SBO was resolving contrast reached the cecum during the study denies abd pain bloating improved has had 6 stools since this am and copious gas no nausea/emesis tolerated clear liquid tray after his NG tube was pulled Review of Systems Review of Systems: gen - no fevers; walking the hallways cv - no chest pain pulm - no dyspnea neuro - no headache HENT - sore throat from recent NG tube Physical Exam Physical Exam: gen - NAD, looks better today HENT - NG tube has been removed; hoarse voice; post throat mildly erythematous neck - no JVD heart - RRR, s1 s2 lungs - CTA b/l abd - mild improvement in distension; BS+; NT; no HSM ext - no edema, pulses 2+ b/l psych - a/o x 3 Results & Data Results & Data Vital Signs (Past 12 Hours) Vital Signs Temp Pulse Resp BP Pulse Ox O2 Del Method 11/05/23 15:00 36.8 C 72 16 128/68 94 Room Air 11/05/23 08:48 164/83 H 11/05/23 07:37 36.8 C 58 L 16 156/83 H 94 Room Air Laboratory Results Laboratory Results - last 48 hr 11/05/23 11/05/23 06:37 08:21 WBC 14.51 H RBC 4.98 Hgb 15.6 Hct 44.9 MCV 90.2 MCH 31.3 MCHC 34.7 RDW Std Deviation 40.5 RDW Coeff of Chris 12.3 Plt Count 219 MPV 11.0 Sodium 138 Potassium TNP 3.2 L Chloride 102 Carbon Dioxide 28 Anion Gap 8 BUN 10 Creatinine 0.90 Est Cr Clr Drug Dosing 83.6 Est GFR ( Amer) 97.2 Est GFR (Non-Af Amer) 83.8 BUN/Creatinine Ratio 11.1 Glucose 95 Calcium 9.2 Magnesium 2.0 PG Care Time/CCT Total # of Minutes Spent Total Time Spent with Patient: Total time spent is greater than 50% in coordination of care (as documented) at patient's floor/unit and/or counseling patient: Coding Level of Care Code 49233 SUB INP/OBS CARE 2/35MIN Diagnoses Small bowel obstruction K56.609 Hypertension I10 Hyperlipidemia E78.5 GERD (gastroesophageal reflux disease) K21.9 Gastritis K29.70 Hiatal hernia K44.9 DVT prophylaxis Z29.9
--- NOTE | 2023-11-05 18:25 | Electrocardiogram Report ---
Test Reason : Blood Pressure : / mmHG Vent. Rate : 065 BPM Atrial Rate : 065 BPM P-R Int : 170 ms QRS Dur : 074 ms QT Int : 392 ms P-R-T Axes : 040 -55 016 degrees QTc Int : 407 ms Normal sinus rhythm Left axis deviation Anterolateral infarct , age undetermined Abnormal ECG When compared with ECG of 28-SEP-2017 15:27, Anterolateral infarct is now Present Premature atrial complexes are no longer Present Confirmed by Michael Stover ([id number]) on 11/05/2023 6:24:38 PM Referred By: REFERRED SELF Confirmed By:Michael Stover
[2023-11-05] MEDS: NIFEdipine EXTENDED REL 30 MG TABCR PO SCH (20:24)
[2023-11-06] MEDS: CHLORASEPTIC (PHENOL) 1.4% SOLN 180 ML BTL MT PRN (07:43)
[2023-11-06 08:30] LABS: BUN Creatinine Ratio 10.8 (10-20); Calcium 9.1 mg/dl (8.6-10.3); Creatinine Clr Calc Pharmacy 73.8 ml/min; Est GFR (African American) 83.5 ml/min; Est GFR (Non-African American) 72.1 ml/min; Potassium 3.3 mmol/L (3.5-5.1)
[2023-11-06] MEDS: PANTOprazole 40 MG in SYRINGE 0 ML IV SCH ×2 (08:53→20:17)
[2023-11-06] MEDS: ENOXAPARIN INJ 40 MG/0.4 ML SYR SQ SCH (08:59)
[2023-11-06] MEDS: POTASSIUM CHLORIDE CRTAB 20 MEQ TABCR PO SCH ×3 (10:07→20:16)
[2023-11-06] MEDS: POTASSIUM CHLORIDE 20 MEQ in LACTATED RINGER'S 1,000 ML IV SCH (13:08)
--- NOTE | 2023-11-06 15:46 | Surgery Progress Note ---
Date of Service November 06, 2023 Assessment & Plan (1) SBO (small bowel obstruction): Plan: Assessment: Patient is a 73 years old gentleman who admitted to hospital for small bowel obstruction. Patient past surgical history of history significant multiple surgeries on the abdomen. Small bowel study show improved small bowel obstruction. Patient passing gas no abdominal pain Gave clear diet today May try full liquid diet tomorrow Will follow-up Admission and Anticipated Discharge Date Admission Date: November 03, 2023 Subjective F/U SBO, removed NG tube yesterday, pt doing better, passed a lot flatus. some liquid stool. no abdominal pain, no fever, clera diet today. Physical Exam Constitutional: WD/WN, vitals as above Eyes: PERRL, conjunctivae normal, anicteric sclerae Neck: trachea midline, no thyromegaly Respiratory: normal respiratory effort, lungs clear to auscultation Cardiovascular: RRR, no murmur, no edema Gastrointestinal (Abdomen): soft, NT, Nd, multiple scar on abdomen. BS +. Neurologic: patellar DTR's 2+ bilat, sensation intact Psychiatric: A+Ox3, euthymic affect Results & Data Vital Signs (Past 12 Hours) Vital Signs Temp Pulse Resp BP Pulse Ox O2 Del Method 11/06/23 14:43 36.4 C L 60 18 120/82 95 Room Air 11/06/23 07:29 36.7 C 58 L 20 124/69 96 Room Air Laboratory Results Lab Results 11/02/23 11/03/23 11/03/23 Range/Units 23:40 01:35 06:16 WBC 14.90 H 12.28 H (4.8-10.8) K/ul RBC 5.66 5.30 (4.70-6.10) M/uL Hgb 18.0 16.3 (14.0-18.0) g/dl Hct 50.6 49.3 (42.0-52.0) % MCV 89.4 93.0 (80.0-100.0) fL MCH 31.8 30.8 (25.0-34.0) pg MCHC 35.6 33.1 (32.0-36.0) g/dL RDW Std Deviation 40.7 42.9 (36.4-46.3) fL RDW Coeff of Chris 12.3 12.6 (11.5-14.5) % Plt Count 299 218 (130-400) K/uL MPV 10.9 11.4 (9.4-12.4) fL Immature Gran % (Auto) 0.5 % Neut % (Auto) 77.0 % Lymph % (Auto) 17.9 % [place] % (Auto) 3.8 % Eos % (Auto) 0.5 % Baso % (Auto) 0.3 % Neut # (Auto) 11.49 H (1.40-6.50) K/uL Lymph # (Auto) 2.66 (1.20-3.40) K/uL [place] # (Auto) 0.57 (0.11-0.59) K/uL Eos # (Auto) 0.07 (0.00-0.50) K/uL Baso # (Auto) 0.04 (0.00-0.20) K/uL Immature Gran # (Auto) 0.07 (0.01-0.20) K/uL Sodium 141 140 (136-145) mmol/L Potassium 4.1 TNP (3.5-5.1) mmol/L Chloride 103 107 (98-107) mmol/L Carbon Dioxide 24 27 (21-32) mmol/L Anion Gap 14 H 6 (3-11) BUN 15 14 (6-23) mg/dl Creatinine 1.22 0.99 (0.6-1.4) mg/dl Est Cr Clr Drug Dosing 61.7 76.0 ml/min Est GFR ( Amer) 67.3 86.6 ml/min Est GFR (Non-Af Amer) 58.0 74.7 ml/min BUN/Creatinine Ratio 12.3 14.1 (10-20) Glucose 126 H 114 H (70-99(Fasting)) mg/dl Calcium 10.4 H 9.5 (8.6-10.3) mg/dl Magnesium (1.7-2.4) mg/dl Total Bilirubin 0.7 (0.2-1.0) mg/dl AST 27 (13-39) U/L ALT 24 (7-52) U/L Alkaline Phosphatase 73 (34-104) U/L Troponin I High Sens 10.4 (0-20) pg/ml Total Protein 8.3 (6.0-8.3) gm/dl Albumin 4.5 (3.4-5.0) gm/dl Globulin 3.8 (2.5-4.0) gm/dl Albumin/Globulin Ratio 1.2 (0.9-2) Lipase 111 H (11-82) U/L Urine Color Yellow Urine Appearance Clear (Clear) Urine pH 8.0 H (4.5-7.5) Ur Specific [place] > 1.045 H (1.000-1.030) Urine Protein Negative (Negative) Urine Glucose (UA) Negative (Negative) Urine Ketones 1+ H (Negative) Urine Blood Negative (Negative) Urine Nitrite Negative (Negative) Urine Bilirubin Negative (Negative) Urine Urobilinogen Negative (Negative) Ur Leukocyte Esterase Negative (Negative) 11/03/23 11/04/23 11/05/23 Range/Units 07:54 06:32 06:37 WBC 14.51 H (4.8-10.8) K/ul RBC 4.98 (4.70-6.10) M/uL Hgb 15.6 (14.0-18.0) g/dl Hct 44.9 (42.0-52.0) % MCV 90.2 (80.0-100.0) fL MCH 31.3 (25.0-34.0) pg MCHC 34.7 (32.0-36.0) g/dL RDW Std Deviation 40.5 (36.4-46.3) fL RDW Coeff of Chris 12.3 (11.5-14.5) % Plt Count 219 (130-400) K/uL MPV 11.0 (9.4-12.4) fL Immature Gran % (Auto) % Neut % (Auto) % Lymph % (Auto) % [place] % (Auto) % Eos % (Auto) % Baso % (Auto) % Neut # (Auto) (1.40-6.50) K/uL Lymph # (Auto) (1.20-3.40) K/uL [place] # (Auto) (0.11-0.59) K/uL Eos # (Auto) (0.00-0.50) K/uL Baso # (Auto) (0.00-0.20) K/uL Immature Gran # (Auto) (0.01-0.20) K/uL Sodium 141 138 (136-145) mmol/L Potassium 4.4 3.7 TNP (3.5-5.1) mmol/L Chloride 106 102 (98-107) mmol/L Carbon Dioxide 29 28 (21-32) mmol/L Anion Gap 6 8 (3-11) BUN 15 10 (6-23) mg/dl Creatinine 0.92 0.90 (0.6-1.4) mg/dl Est Cr Clr Drug Dosing 81.8 83.6 ml/min Est GFR ( Amer) 94.6 97.2 ml/min Est GFR (Non-Af Amer) 81.6 83.8 ml/min BUN/Creatinine Ratio 16.3 11.1 (10-20) Glucose 101 H 95 (70-99(Fasting)) mg/dl Calcium 8.9 9.2 (8.6-10.3) mg/dl Magnesium 2.0 (1.7-2.4) mg/dl Total Bilirubin (0.2-1.0) mg/dl AST (13-39) U/L ALT (7-52) U/L Alkaline Phosphatase (34-104) U/L Troponin I High Sens (0-20) pg/ml Total Protein (6.0-8.3) gm/dl Albumin (3.4-5.0) gm/dl Globulin (2.5-4.0) gm/dl Albumin/Globulin Ratio (0.9-2) Lipase (11-82) U/L Urine Color Urine Appearance (Clear) Urine pH (4.5-7.5) Ur Specific [place] (1.000-1.030) Urine Protein (Negative) Urine Glucose (UA) (Negative) Urine Ketones (Negative) Urine Blood (Negative) Urine Nitrite (Negative) Urine Bilirubin (Negative) Urine Urobilinogen (Negative) Ur Leukocyte Esterase (Negative) 11/05/23 11/06/23 Range/Units 08:21 06:45 WBC (4.8-10.8) K/ul RBC (4.70-6.10) M/uL Hgb (14.0-18.0) g/dl Hct (42.0-52.0) % MCV (80.0-100.0) fL MCH (25.0-34.0) pg MCHC (32.0-36.0) g/dL RDW Std Deviation (36.4-46.3) fL RDW Coeff of Chris (11.5-14.5) % Plt Count (130-400) K/uL MPV (9.4-12.4) fL Immature Gran % (Auto) % Neut % (Auto) % Lymph % (Auto) % [place] % (Auto) % Eos % (Auto) % Baso % (Auto) % Neut # (Auto) (1.40-6.50) K/uL Lymph # (Auto) (1.20-3.40) K/uL [place] # (Auto) (0.11-0.59) K/uL Eos # (Auto) (0.00-0.50) K/uL Baso # (Auto) (0.00-0.20) K/uL Immature Gran # (Auto) (0.01-0.20) K/uL Sodium 141 (136-145) mmol/L Potassium 3.2 L 3.3 L (3.5-5.1) mmol/L Chloride 105 (98-107) mmol/L Carbon Dioxide 27 (21-32) mmol/L Anion Gap 9 (3-11) BUN 11 (6-23) mg/dl Creatinine 1.02 (0.6-1.4) mg/dl Est Cr Clr Drug Dosing 73.8 ml/min Est GFR ( Amer) 83.5 ml/min Est GFR (Non-Af Amer) 72.1 ml/min BUN/Creatinine Ratio 10.8 (10-20) Glucose 88 (70-99(Fasting)) mg/dl Calcium 9.1 (8.6-10.3) mg/dl Magnesium (1.7-2.4) mg/dl Total Bilirubin (0.2-1.0) mg/dl AST (13-39) U/L ALT (7-52) U/L Alkaline Phosphatase (34-104) U/L Troponin I High Sens (0-20) pg/ml Total Protein (6.0-8.3) gm/dl Albumin (3.4-5.0) gm/dl Globulin (2.5-4.0) gm/dl Albumin/Globulin Ratio (0.9-2) Lipase (11-82) U/L Urine Color Urine Appearance (Clear) Urine pH (4.5-7.5) Ur Specific [place] (1.000-1.030) Urine Protein (Negative) Urine Glucose (UA) (Negative) Urine Ketones (Negative) Urine Blood (Negative) Urine Nitrite (Negative) Urine Bilirubin (Negative) Urine Urobilinogen (Negative) Ur Leukocyte Esterase (Negative) Diagnostic Findings [place] small bowel follow through CLINICAL HISTORY: Small bowel obstruction. COMPARISON STUDY: CT of the abdomen and pelvis November 03, 2023 and KUB Decem 2022. TECHNIQUE: Initially, a shrimp packer KUB was obtained. Small bowel follow-through was then performed utilizing dilute Optiray 320. Overhead images were obtained. FINDINGS: There are cholecystectomy clips. Tip of nasogastric tube is within the distal stomach. Surgical clips within the lower abdomen and pelvis are noted. Small bowel dilatation has improved since prior CT and KUB. There is mild residual dilatation of several mid small bowel loops. No well-defined transition point was identified. Contrast reached the cecum at 40 minutes. There is no evidence for a high-grade small bowel obstruction. IMPRESSION: Findings suggestive of an improving small bowel obstruction. Mild residual small bowel dilatation, improved since prior exam. No well-defined transition point. Contrast reached the cecum at 40 minutes.
[2023-11-06] MEDS: NIFEdipine EXTENDED REL 30 MG TABCR PO SCH (20:17)
--- NOTE | 2023-11-06 20:35 | Hospitalist Progress Note ---
Date of Service November 06, 2023 Assessment & Plan (1) Small bowel obstruction: Plan: likely on the basis of adhesions due to: * previous cholecystectomy * history of perforated diverticulitis s/p resection/colostomy formation, then reversal of colostomy ultimately * previous appendectomy small bowel follow-thru study 11/05 --> SBO resolving based on that study clinically resolving --> multiple stools, flatus, distension improving initially had NG tube --> now removed tolerating clear liquids gen surg advises 1 more day of clears, then full liquids on 11/07 if doing well cont IVF; reduce rate to 50cc/hr labs in am (2) Hypertension: Plan: cont nifedipine BPs acceptable (3) Hyperlipidemia: Plan: can resume statin at d/c (4) GERD (gastroesophageal reflux disease): Plan: h/o GERD, hiatal hernia, and recent NSAID use (had been on motrin for months, then changed to celebrex about 1 month ago) minimal coffee-ground material in his NG tubing & cannister prior to d/c of NG tube typically on pepcid at home pepcid held changed to IV protonix 40mg BID at discharge plan protonix 40mg PO BID and consider referral to GI as outpatient would STOP all NSAIDs if possible (5) Gastritis: Plan: probable due to chronic NSAID use see #4 above at d/c would recommend several weeks of PPI and f/u with GI for ?EGD H/H remain acceptable (6) Hiatal hernia: Plan: risk factor for severe GERD/gastritis/etc IV ppi twice daily for now see above (7) DVT prophylaxis: Plan: H/H stable while here - can cautiously continue lovenox Plan updated at bedside once again Hypokalemia - continues; replace with PO + IV K supplementation BMP am progressing nicely Admission and Anticipated Discharge Date Admission Date: November 03, 2023 Subjective has had at least 3 liquid stools today passing copious flatus still with some bloating of his abdomen but no N/V tolerating clears overall feels better walking hallways without dizziness stools are "dark" but not melena Review of Systems 2 Review of Systems: cv - no chest pain pulm - no dyspnea or RODRIGUEZ GI - no pain Physical Exam Physical Exam: gen - NAD, looks well HENT - MMM, no lesions neck - no JVD heart - RRR, s1 s2, /6 NEW LSB lungs - CTA b/l abd - again modest improvement in distension; BS+; NT; no HSM ext - no edema, pulses 2+ b/l psych - a/o x 3 Results & Data Results & Data Vital Signs (Past 12 Hours) Vital Signs Temp Pulse Resp BP Pulse Ox O2 Del Method 11/06/23 20:15 36.5 C 58 L 16 140/79 93 Room Air 11/06/23 14:43 36.4 C L 60 18 120/82 95 Room Air Laboratory Results Laboratory Results - last 24 hr 11/06/23 06:45 Sodium 141 Potassium 3.3 L Chloride 105 Carbon Dioxide 27 Anion Gap 9 BUN 11 Creatinine 1.02 Est Cr Clr Drug Dosing 73.8 Est GFR ( Amer) 83.5 Est GFR (Non-Af Amer) 72.1 BUN/Creatinine Ratio 10.8 Glucose 88 Calcium 9.1 PG Care Time/CCT Total # of Minutes Spent Total Time Spent with Patient: Total time spent is greater than 50% in coordination of care (as documented) at patient's floor/unit and/or counseling patient: Coding Level of Care Code 15725 SUB INP/OBS CARE 12/09MIN Diagnoses Small bowel obstruction K56.609 Hypertension I10 Hyperlipidemia E78.5 GERD (gastroesophageal reflux disease) K21.9 Gastritis K29.70 Hiatal hernia K44.9 DVT prophylaxis Z29.9
[2023-11-07] MEDS: POTASSIUM CHLORIDE 20 MEQ in LACTATED RINGER'S 1,000 ML IV SCH (05:11)
[2023-11-07 06:40] LABS: Hematocrit (blood only) 42.5 % (42.0-52.0); Hemoglobin 14.8 g/dl (14.0-18.0); Mean Corpuscular Hemoglobin 31.5 pg (25.0-34.0); Mean Corpuscular Hgb Conc 34.8 g/dL (32.0-36.0); Mean Corpuscular Volume 90.4 fL (80.0-100.0); Mean Platelet Volume 10.5 fL (9.4-12.4); Platelet Count 204 K/uL (130-400); RDW Coefficient of Variation 12.2 % (11.5-14.5); RDW Standard Deviation 40.8 fL (36.4-46.3); White Blood Count 8.95 K/ul (4.8-10.8)
[2023-11-07 07:08] LABS: BUN Creatinine Ratio 9.7 (10-20); Calcium 8.7 mg/dl (8.6-10.3); Creatinine Clr Calc Pharmacy 80.9 ml/min; Est GFR (African American) 93.4 ml/min; Est GFR (Non-African American) 80.6 ml/min; Magnesium 2.1 mg/dl (1.7-2.4); Potassium 3.7 mmol/L (3.5-5.1)
--- NOTE | 2023-11-07 07:42 | Hospitalist Progress Note ---
Date of Service November 07, 2023 Assessment & Plan (1) Small bowel obstruction: Plan: likely on the basis of adhesions. previous cholecystectomy history of perforated diverticulitis s/p resection/colostomy formation, then reversal of colostomy ultimately previous appendectomy small bowel follow-thru 11/05 study results noted --> contrast to cecum in 40 mins clinically resolving --> multiple stools, flatus, distension improving advanced diet to soft low residual (2) Hypertension: Plan: resume nifedipine stop hydralazine IV (3) Hyperlipidemia: Plan: can resume statin at d/c (4) GERD (gastroesophageal reflux disease): Plan: h/o GERD, hiatal hernia, and recent NSAID use minimal coffee-ground material in his NG tubing & cannister typically on pepcid at home cont IV protonix 40mg BID (5) Gastritis: Plan: probable due to chronic NSAID use see #4 above at d/c would recommend several weeks of PPI and f/u with GI for ?EGD (6) Hiatal hernia: Plan: risk factor for severe GERD/gastritis/etc IV ppi twice daily (7) DVT prophylaxis: Plan: H/H stable today - can cautiously continue lovenox Admission and Anticipated Discharge Date Admission Date: November 03, 2023 Subjective Patient was seen after tolerating a full liquid breakfast advance in the soft food for lunch low residual diet. Offered the patient a shower patient ambulating hallways easily Physical Exam Physical Exam: Patient has bowel sounds present they are not hyperactive his abdomen is soft and nontender Cardiopulmonary exam is stable Results & Data Results & Data Vital Signs (Past 12 Hours) Vital Signs Temp Pulse Resp BP Pulse Ox O2 Del Method 11/06/23 20:17 Room Air 11/06/23 20:15 97.7 F 58 L 16 140/79 93 Room Air Laboratory Results Reviewed CBC reviewed chemistry PG Care Time/CCT Total # of Minutes Spent Total Time Spent with Patient: Total time spent is greater than 50% in coordination of care (as documented) at patient's floor/unit and/or counseling patient: Coding Level of Care Code 16533 SUB INP/OBS CARE 2/35MIN Diagnoses Small bowel obstruction K56.609 Hypertension I10 Hyperlipidemia E78.5 GERD (gastroesophageal reflux disease) K21.9 Gastritis K29.70 Hiatal hernia K44.9 DVT prophylaxis Z29.9
[2023-11-07] MEDS: POTASSIUM CHLORIDE CRTAB 20 MEQ TABCR PO SCH (08:19)
[2023-11-07] MEDS: ENOXAPARIN INJ 40 MG/0.4 ML SYR SQ SCH (08:20)
[2023-11-07] MEDS: PANTOprazole 40 MG in SYRINGE 0 ML IV SCH ×2 (08:20→20:41)
[2023-11-07] MEDS ORDERED: ACETAMINOPHEN 500 MG TAB PO PRN (10:32)
[2023-11-07] MEDS ORDERED: traMADol HCL 50 MG TABLET PO PRN (10:34)
--- NOTE | 2023-11-07 14:03 | Surgery Progress Note ---
Date of Service November 07, 2023 Assessment & Plan (1) SBO (small bowel obstruction): Plan: Assessment: Patient is a 73 years old gentleman who admitted to hospital for small bowel obstruction. Patient past surgical history of history significant multiple surgeries on the abdomen. Small bowel study show improved small bowel obstruction. Patient passing gas no abdominal pain Gave clear diet today May try full liquid diet tomorrow Will follow-up 11/07/2023 2:02 PM doing better, tolerated diet may D/C home tomorrow, will F/U. Admission and Anticipated Discharge Date Admission Date: November 03, 2023 Subjective F/U SBO, removed NG tube yesterday, pt doing better, passed a lot flatus. some liquid stool. no abdominal pain, no fever, pt is on regular diet today. pt tolerated the diet. no nausea, no vomiting. Physical Exam Constitutional: WD/WN, vitals as above Eyes: PERRL, conjunctivae normal, anicteric sclerae Neck: trachea midline, no thyromegaly Respiratory: normal respiratory effort, lungs clear to auscultation Cardiovascular: RRR, no murmur, no edema Gastrointestinal (Abdomen): soft, NT, ND, BS +. Neurologic: patellar DTR's 2+ bilat, sensation intact Psychiatric: A+Ox3, euthymic affect Results & Data Vital Signs (Past 12 Hours) Vital Signs Temp Pulse Resp BP Pulse Ox O2 Del Method 11/07/23 08:04 36.5 C 78 18 152/81 H 94 Room Air Laboratory Results Lab Results 11/02/23 11/03/23 11/03/23 Range/Units 23:40 01:35 06:16 WBC 14.90 H 12.28 H (4.8-10.8) K/ul RBC 5.66 5.30 (4.70-6.10) M/uL Hgb 18.0 16.3 (14.0-18.0) g/dl Hct 50.6 49.3 (42.0-52.0) % MCV 89.4 93.0 (80.0-100.0) fL MCH 31.8 30.8 (25.0-34.0) pg MCHC 35.6 33.1 (32.0-36.0) g/dL RDW Std Deviation 40.7 42.9 (36.4-46.3) fL RDW Coeff of Chris 12.3 12.6 (11.5-14.5) % Plt Count 299 218 (130-400) K/uL MPV 10.9 11.4 (9.4-12.4) fL Immature Gran % (Auto) 0.5 % Neut % (Auto) 77.0 % Lymph % (Auto) 17.9 % [place] % (Auto) 3.8 % Eos % (Auto) 0.5 % Baso % (Auto) 0.3 % Neut # (Auto) 11.49 H (1.40-6.50) K/uL Lymph # (Auto) 2.66 (1.20-3.40) K/uL [place] # (Auto) 0.57 (0.11-0.59) K/uL Eos # (Auto) 0.07 (0.00-0.50) K/uL Baso # (Auto) 0.04 (0.00-0.20) K/uL Immature Gran # (Auto) 0.07 (0.01-0.20) K/uL Sodium 141 140 (136-145) mmol/L Potassium 4.1 TNP (3.5-5.1) mmol/L Chloride 103 107 (98-107) mmol/L Carbon Dioxide 24 27 (21-32) mmol/L Anion Gap 14 H 6 (3-11) BUN 15 14 (6-23) mg/dl Creatinine 1.22 0.99 (0.6-1.4) mg/dl Est Cr Clr Drug Dosing 61.7 76.0 ml/min Est GFR ( Amer) 67.3 86.6 ml/min Est GFR (Non-Af Amer) 58.0 74.7 ml/min BUN/Creatinine Ratio 12.3 14.1 (10-20) Glucose 126 H 114 H (70-99(Fasting)) mg/dl Calcium 10.4 H 9.5 (8.6-10.3) mg/dl Magnesium (1.7-2.4) mg/dl Total Bilirubin 0.7 (0.2-1.0) mg/dl AST 27 (13-39) U/L ALT 24 (7-52) U/L Alkaline Phosphatase 73 (34-104) U/L Troponin I High Sens 10.4 (0-20) pg/ml Total Protein 8.3 (6.0-8.3) gm/dl Albumin 4.5 (3.4-5.0) gm/dl Globulin 3.8 (2.5-4.0) gm/dl Albumin/Globulin Ratio 1.2 (0.9-2) Lipase 111 H (11-82) U/L Urine Color Yellow Urine Appearance Clear (Clear) Urine pH 8.0 H (4.5-7.5) Ur Specific [place] > 1.045 H (1.000-1.030) Urine Protein Negative (Negative) Urine Glucose (UA) Negative (Negative) Urine Ketones 1+ H (Negative) Urine Blood Negative (Negative) Urine Nitrite Negative (Negative) Urine Bilirubin Negative (Negative) Urine Urobilinogen Negative (Negative) Ur Leukocyte Esterase Negative (Negative) 11/03/23 11/04/23 11/05/23 Range/Units 07:54 06:32 06:37 WBC 14.51 H (4.8-10.8) K/ul RBC 4.98 (4.70-6.10) M/uL Hgb 15.6 (14.0-18.0) g/dl Hct 44.9 (42.0-52.0) % MCV 90.2 (80.0-100.0) fL MCH 31.3 (25.0-34.0) pg MCHC 34.7 (32.0-36.0) g/dL RDW Std Deviation 40.5 (36.4-46.3) fL RDW Coeff of Chris 12.3 (11.5-14.5) % Plt Count 219 (130-400) K/uL MPV 11.0 (9.4-12.4) fL Immature Gran % (Auto) % Neut % (Auto) % Lymph % (Auto) % [place] % (Auto) % Eos % (Auto) % Baso % (Auto) % Neut # (Auto) (1.40-6.50) K/uL Lymph # (Auto) (1.20-3.40) K/uL [place] # (Auto) (0.11-0.59) K/uL Eos # (Auto) (0.00-0.50) K/uL Baso # (Auto) (0.00-0.20) K/uL Immature Gran # (Auto) (0.01-0.20) K/uL Sodium 141 138 (136-145) mmol/L Potassium 4.4 3.7 TNP (3.5-5.1) mmol/L Chloride 106 102 (98-107) mmol/L Carbon Dioxide 29 28 (21-32) mmol/L Anion Gap 6 8 (3-11) BUN 15 10 (6-23) mg/dl Creatinine 0.92 0.90 (0.6-1.4) mg/dl Est Cr Clr Drug Dosing 81.8 83.6 ml/min Est GFR ( Amer) 94.6 97.2 ml/min Est GFR (Non-Af Amer) 81.6 83.8 ml/min BUN/Creatinine Ratio 16.3 11.1 (10-20) Glucose 101 H 95 (70-99(Fasting)) mg/dl Calcium 8.9 9.2 (8.6-10.3) mg/dl Magnesium 2.0 (1.7-2.4) mg/dl Total Bilirubin (0.2-1.0) mg/dl AST (13-39) U/L ALT (7-52) U/L Alkaline Phosphatase (34-104) U/L Troponin I High Sens (0-20) pg/ml Total Protein (6.0-8.3) gm/dl Albumin (3.4-5.0) gm/dl Globulin (2.5-4.0) gm/dl Albumin/Globulin Ratio (0.9-2) Lipase (11-82) U/L Urine Color Urine Appearance (Clear) Urine pH (4.5-7.5) Ur Specific [place] (1.000-1.030) Urine Protein (Negative) Urine Glucose (UA) (Negative) Urine Ketones (Negative) Urine Blood (Negative) Urine Nitrite (Negative) Urine Bilirubin (Negative) Urine Urobilinogen (Negative) Ur Leukocyte Esterase (Negative) 11/05/23 11/06/23 11/07/23 Range/Units 08:21 06:45 06:02 WBC 8.95 (4.8-10.8) K/ul RBC 4.70 (4.70-6.10) M/uL Hgb 14.8 (14.0-18.0) g/dl Hct 42.5 (42.0-52.0) % MCV 90.4 (80.0-100.0) fL MCH 31.5 (25.0-34.0) pg MCHC 34.8 (32.0-36.0) g/dL RDW Std Deviation 40.8 (36.4-46.3) fL RDW Coeff of Chris 12.2 (11.5-14.5) % Plt Count 204 (130-400) K/uL MPV 10.5 (9.4-12.4) fL Immature Gran % (Auto) % Neut % (Auto) % Lymph % (Auto) % [place] % (Auto) % Eos % (Auto) % Baso % (Auto) % Neut # (Auto) (1.40-6.50) K/uL Lymph # (Auto) (1.20-3.40) K/uL [place] # (Auto) (0.11-0.59) K/uL Eos # (Auto) (0.00-0.50) K/uL Baso # (Auto) (0.00-0.20) K/uL Immature Gran # (Auto) (0.01-0.20) K/uL Sodium 141 141 (136-145) mmol/L Potassium 3.2 L 3.3 L 3.7 (3.5-5.1) mmol/L Chloride 105 107 (98-107) mmol/L Carbon Dioxide 27 28 (21-32) mmol/L Anion Gap 9 6 (3-11) BUN 11 9 (6-23) mg/dl Creatinine 1.02 0.93 (0.6-1.4) mg/dl Est Cr Clr Drug Dosing 73.8 80.9 ml/min Est GFR ( Amer) 83.5 93.4 ml/min Est GFR (Non-Af Amer) 72.1 80.6 ml/min BUN/Creatinine Ratio 10.8 9.7 L (10-20) Glucose 88 100 H (70-99(Fasting)) mg/dl Calcium 9.1 8.7 (8.6-10.3) mg/dl Magnesium 2.1 (1.7-2.4) mg/dl Total Bilirubin (0.2-1.0) mg/dl AST (13-39) U/L ALT (7-52) U/L Alkaline Phosphatase (34-104) U/L Troponin I High Sens (0-20) pg/ml Total Protein (6.0-8.3) gm/dl Albumin (3.4-5.0) gm/dl Globulin (2.5-4.0) gm/dl Albumin/Globulin Ratio (0.9-2) Lipase (11-82) U/L Urine Color Urine Appearance (Clear) Urine pH (4.5-7.5) Ur Specific [place] (1.000-1.030) Urine Protein (Negative) Urine Glucose (UA) (Negative) Urine Ketones (Negative) Urine Blood (Negative) Urine Nitrite (Negative) Urine Bilirubin (Negative) Urine Urobilinogen (Negative) Ur Leukocyte Esterase (Negative)
[2023-11-07] MEDS: NIFEdipine EXTENDED REL 30 MG TABCR PO SCH (20:39)
[2023-11-08] MEDS: PANTOprazole 40 MG in SYRINGE 0 ML IV SCH (07:51)
[2023-11-08] MEDS: ENOXAPARIN INJ 40 MG/0.4 ML SYR SQ SCH (07:51)
[2023-11-08 07:59] VITALS: BP 144/81; PULSE 60; RESP 16; TEMP 97.9; O2SAT 97
--- NOTE | 2023-11-08 09:52 | Discharge Summary ---
Date of Service November 08, 2023 Admission HPI Per Admitting Provider Patient is a 73-year-old male with past medical history of hypertension, previous cholecystectomy, history of perforated diverticulitis status post reanastomosed colostomy, previous appendectomy, hyperlipidemia, and GERD who presents to the hospital for evaluation of abdominal pain. It seems patient had a normal day up until approximately 4 PM when he had a small bout of crampy abdominal pain which somewhat improved but then later in the evening into 7 or 8 PM, patient's abdominal pain got severely worse which made him come to the emergency department for further evaluation. Prior to coming to the emergency room he did not have any vomiting but he did vomit in his room once. He has been quite nauseous as well. No hematemesis. Last bowel movement was this morning and it was normal. Patient gets a colonoscopy every 5 years with his last 1 being 2 years ago over they did find some polyps. No history of colon cancer. Otherwise no other complaints at this time. ED course: Patient evaluated by provider. Labs were significant for an elevated white blood cell count of 14. Anion gap of 14. Calcium of 10.4. Lipase of 111. Urinalysis positive for 1+ ketones. Abdomen and pelvis CT positive for small bowel obstruction. Patient was given antiemetics, Tylenol, a bolus of normal saline all of which seem to improve his symptoms. An NG tube was ordered and placed by nursing. The hospitalist service was consulted for admission and the general surgery group was also consulted. Principal Diagnosis small bowel obstruction due to adhesions Discharge Exam AOx4, well-appearing heart reg no mrg lungs CTAB no rrw, normal resp effort abd soft / NT / ND normal active bowel tones Discharge Data Allergies Allergy/AdvReac Type Severity Reaction Status Date / Time morphine Allergy Unknown RASH Verified 09/13/23 13:17 oxycodone Allergy Unknown RASH Verified 09/13/23 13:17 Penicillins Allergy Unknown RASH Verified 09/13/23 13:17 monosodium glutamate AdvReac Unknown Diarrhea Verified 09/13/23 13:17 Consultations 11/03/23 02:15 ED Decision to Admit Stat 11/03/23 03:48 Consult General Surgery Routine Ordered Studies 11/03/23 00:22 CT abd pelvis IV con only Stat 11/05/23 07:00 SBFT Modified Swallow [FL small bowel follow through] Routine Abdomen/Pelvis CT 11/03/23 00:22 Exam(s): CT ABDOMEN + PELVIS With Contrast IV Amt: 89 ml optiray 320 EXAM: CT Abdomen and Pelvis With Intravenous Contrast CLINICAL HISTORY: Reason for exam: abd pain, h/o diverticulitis. TECHNIQUE: Axial computed tomography images of the abdomen and pelvis with intravenous contrast. Automated exposure control was utilized for the study. A dose lowering technique was utilized adhering to the principles of ALARA. CONTRAST: Patient received 89 ml optiray 320 of IV contrast COMPARISON: None. FINDINGS: Lung bases: Minimal left lower lobe atelectasis, remainder of the lung bases are clear. Heart: Unremarkable. No cardiomegaly. No significant pericardial effusion. Normal cardiac size with mild coronary artery calcifications. ABDOMEN: Liver: Unremarkable. No mass. Gallbladder and bile ducts: Status post cholecystectomy. No ductal dilation. Pancreas: Unremarkable. No mass. No ductal dilation. Spleen: Unremarkable. No splenomegaly. Adrenals: Unremarkable. No mass. Kidneys and ureters: Mild bilateral perinephric stranding, otherwise normal bilateral kidneys. No hydronephrosis. Stomach and bowel: Diffuse distention of multiple small bowel loops up to a maximum diameter of 2.5 cm compatible with small bowel obstruction. Transition is indeterminate and likely within the anterior abdomen, mid jejunum, axial images 57, 58, series 2. Mild scattered diverticulosis with no signs of diverticulitis. There are postoperative changes throughout the sigmoid with scattered surgical clips throughout the mid abdomen. PELVIS: Appendix: Distinct appendix not visualized. Appendix not visualized. Bladder: Unremarkable. No mass. Reproductive: Mild nodular enlargement of the prostate gland. ABDOMEN and PELVIS: Intraperitoneal space: Unremarkable. No free air. No significant fluid collection. Bones/joints: Multilevel degenerative disease of the spine. No acute fracture. No dislocation. Soft tissues: Unremarkable. Vasculature: Mild atherosclerotic disease of aorta and bilateral iliac arteries. Lymph nodes: Unremarkable. No enlarged lymph nodes. IMPRESSION: 1. Small bowel obstruction with suboptimally seen on a transition and likely within the mid jejunum as described above. 2. Diverticulosis with no signs of diverticulitis. 3. Status post cholecystectomy, otherwise unremarkable abdominal viscera. Electronically signed by: Janna Fox MD 11/03/23 02:06 AM KUB X-Ray 11/03/23 02:45 KUB CLINICAL HISTORY: NG tube confirmation COMPARISON STUDY: CT of the abdomen and pelvis performed earlier today. FINDINGS: Tip of nasogastric tube projects over the distal stomach. Cholecystectomy clips are incidentally noted. Left basilar opacity favors atelectasis. IMPRESSION: Tip of nasogastric tube projects over the distal stomach. ACT 112: Negative or not required by law. Electronically signed by: Brain Rodriguez M.D. 11/03/2023 7:03 AM KUB X-Ray 11/04/23 07:00 KUB CLINICAL HISTORY: Small bowel obstruction. COMPARISON STUDY: CT of the abdomen and pelvis and KUB November 03, 2023. FINDINGS: Tip of nasogastric tube projects over the distal stomach. There are cholecystectomy clips as well as multiple abdominal surgical clips. Multiple loops of mildly dilated small bowel measure up to 4.1 cm in caliber. The findings suggest a persistent small bowel obstruction. Although sensitivity is diminished on supine exam, there is no evidence for free air. No radiographic evidence for pneumatosis. IMPRESSION: Findings suggestive of a persistent small bowel obstruction. ACT 112: Negative or not required by law. Electronically signed by: Brain Rodriguez M.D. 11/04/2023 9:50 AM Small Bowel X-Ray 11/05/23 07:00 FL small bowel follow through CLINICAL HISTORY: Small bowel obstruction. COMPARISON STUDY: CT of the abdomen and pelvis November 03, 2023 and KUB November 04, 2023. TECHNIQUE: Initially, a digital research analyst KUB was obtained. Small bowel follow-through was then performed utilizing dilute Optiray 320. Overhead images were obtained. FINDINGS: There are cholecystectomy clips. Tip of nasogastric tube is within the distal stomach. Surgical clips within the lower abdomen and pelvis are noted. Small bowel dilatation has improved since prior CT and KUB. There is mild residual dilatation of several mid small bowel loops. No well-defined transition point was identified. Contrast reached the cecum at 40 minutes. There is no evidence for a high-grade small bowel obstruction. IMPRESSION: Findings suggestive of an improving small bowel obstruction. Mild residual small bowel dilatation, improved since prior exam. No well-defined transition point. Contrast reached the cecum at 40 minutes. ACT 112: Negative or not required by law. Electronically signed by: Brain Rodriguez M.D. 11/05/2023 10:49 AM 11/07/23 06:02 11/07/23 06:02 Hospital Course (1) Small bowel obstruction: likely on the basis of adhesions. previous cholecystectomy history of perforated diverticulitis s/p resection/colostomy formation, then reversal of colostomy ultimately previous appendectomy -treated with NG tube for decompression, supportive care -general surgery consulted small bowel follow-thru 11/05 --> contrast to cecum in 40 mins clinically resolving --> multiple stools, flatus, distension improving on 11/07. tolerated advancement to general diet, resolved as of 11/08. -discussed return precautions (2) Hypertension: resume nifedipine (3) Hyperlipidemia: can resume statin at d/c (4) GERD (gastroesophageal reflux disease): see below (5) Gastritis: Probable gastritis - NSAID and/or NG trauma related h/o GERD, hiatal hernia, and recent NSAID use minimal coffee-ground material in his NG tubing & cannister. not anemic. typically on famotidine and celebrex at home -treated with IV protonix 40mg BID in hospital -no significant GI bleeding occurred -replaced famotidine with omeprazole x 2-4 weeks, follow up in primary care. Can step down to omeprazole 20 mg or back to famotidine if symptoms resolve. Otherwise, outpatient gastroenterology referral. (6) Hiatal hernia: risk factor for severe GERD/gastritis/etc Total Time Total Time Spent Total Time Spent (In Minutes): 25 minutes coordinating care for discharge Discharge Plan Discharge Items Patient Disposition: Home - Self-Care Reason For Visit: ABDOMINAL PAIN Discharge Diagnosis: small bowel obstruction Activity: Resume your previous activity Non-emergency contact: Primary Care Provider Call non-emergency contact if: you have any medication questions, your symptoms worsen and you have a fever Follow-up/Referrals: Ayush Arteaga DO [Primary Care Provider] - Diet: Regular Addtl Attending Provider Instructions: You were treated for small bowel obstruction - this resolved with conservative treatment (NG tube for decompression, time, supportive care). This was caused by adhesions (scars in abdomen from prior surgeries). Its probably a good idea to stay on a low fiber diet for about a week, until your bowel function seems back to normal. You had some evidence of gastritis - stomach inflammation - probably caused by NSAIDS or irritation from the NG tube -continue the celebrex instead of other NSAIDS -stop famotidine and replace with omeprazole for about a month, then you could go back on famotidine or on lower dose omeprazole -follow up with your primary care provider -if the problem persists after treatment above, your primary care may recommend a referral to property manager Pending Studies at Discharge: No Stand-Alone Forms: My [facility], Smoking Cessation Medications and DC Order Prescriptions: New omeprazole 40 mg capsule,delayed release(DR/EC) 40 mg PO DAILY 28 Days Qty: 28 0RF Continued glucosamine HCl 1,500 mg tablet 1,500 mg PO DAILY Rx Instructions: administer with a meal celecoxib [Celebrex] 100 mg capsule 100 mg PO BID Qty: 60 2RF atorvastatin 20 mg tablet 20 mg PO DAILY Qty: 90 3RF nifedipine 30 mg tablet extended release 30 mg PO HS Qty: 90 3RF Macular Health Formula 5-1-7.5 mg capsule 1 cap PO DAILY calcium carbonate 600 mg calcium (1,500 mg) tablet 600 mg PO DAILY cholecalciferol (vitamin D3) 125 mcg (5,000 unit) capsule 125 mcg PO DAILY multivitamin Tablet 1 tab PO QAM aspirin [Aspir-81] 81 mg Tablet,Delayed Release (Dr/Ec) 81 mg PO QAM Discontinued famotidine 40 mg tablet 40 mg PO DAILY Qty: 90 1RF Discharge Orders: Discharge Order (Routine); Ordered 11/08/23 Ordered By: Reta Casarez/Other Patient Handouts: Small Bowel Obstruction Admission Data Admit Date/Time: 11/03/23 02:45 Attending Provider: Reta Curry Admit Provider: Napoleon Hopkins Primary Care Provider: Ayush Arteaga Other Providers: David Barry; Vini Roberto Coding Level of Care Code 04019 IN/OBS DISCH 30 MIN/LESS Diagnoses Small bowel obstruction K56.609 Hypertension I10 Hyperlipidemia E78.5 GERD (gastroesophageal reflux disease) K21.9 Gastritis K29.70 Hiatal hernia K44.9
== END 2023-11-08 11:31 | disposition home or self-care (01) | DRG 390 ==
LOC: ED 23:10 → 3N 11-03 02:45 → SUATTDRO 11-03 02:45 → 3N 11-03 03:28